=== PATIENT | female | born 1980 | race African-American/Black ===

== ENCOUNTER 2024-01-21 04:14 | Emergency (ER) | payer MEDICAID ==
[~2024-01-21] VITALS: Ht 157.5 cm; Wt 91.0 kg
[2024-01-21] MEDS: IPRATROPIUM BROM 0.5 MG/2.5ML INH SOL NEB ONE (04:41)
[2024-01-21] MEDS: ALBUTEROL SULF 2.5 MG/0.5ML(0.5%) NEB SOLN NEB ONE (04:41)
[2024-01-21] MEDS: DexAMETHasone SOD PHOS 10MG/1ML VIAL INJ IM ONE (05:13)
[2024-01-21 06:30] LABS: Basophils # (auto) 0.1 10 ^3/uL (0-0.2); Basophils % (auto) 0.8 % (0.0-2.0); Eosinophils # (auto) 0.2 10 ^3/uL (0-0.8); Eosinophils % (auto) 1.8 % (0.0-7.0); Hemoglobin 12.3 g/dL (12.2-16.2); Lymphocytes # (auto) 3.1 10 ^3/uL (0.4-5.4); Lymphocytes % (auto) 28.5 % (10.0-50.0); Mean Corpuscular Hemoglobin 27.6 pg (28.0-32.0); Mean Corpuscular Hgb Conc. 32.4 g/dL (32.0-36.0); Monocytes # (auto) 0.7 10 ^3/uL (0-1.3); Neutrophils % (auto) 62.9 % (37.0-80.0); Nucleated Red Blood Cells % 0.1 %; Red Blood Cells 4.47 10^6/uL (4.0-5.20); Red Cell Distribution Width 14.2 % (11.8-14.3); White Blood Cell 11.1 10^3/uL (4.4-10.8)
[2024-01-21 06:31] LABS: Chloride 105 mmol/L (98-107); Potassium 3.6 mmol/L (3.5-5.1); Sodium 140 mmol/L (136-145)
[2024-01-21 06:32] LABS: Anion Gap 6 (5-15); Calcium 9.4 mg/dL (8.5-10.1); Carbon Dioxide 29 mmol/L (20-30)
[2024-01-21 06:37] LABS: BUN/Creatinine Ratio 10.6 (10.0-20.0); Blood Urea Nitrogen 11 mg/dL (9-23); Glucose 102 mg/dL (74-106)
[2024-01-21] MEDS ORDERED: dilTIAZem 25 MG/5 ML VIAL IV ONE (07:30)
[2024-01-21 07:31] VITALS: BP 134/80; RESP 18; O2SAT 98
[2024-01-21 08:00] VITALS: PULSE 92
== END 2024-01-21 08:01 | disposition left against medical advice (07) ==
LOC: ER 04:14
DX: J45.909 Unspecified asthma, uncomplicated (principal); I25.2 Old myocardial infarction; I10 Essential (primary) hypertension; F17.210 Nicotine dependence, cigarettes, uncomplicated; F12.10 Cannabis abuse, uncomplicated; Z86.73 Personal history of transient ischemic attack (TIA), and cerebral infarction without residual deficits; Z90.49 Acquired absence of other specified parts of digestive tract
CPT/HCPCS: 36415; 71045; 80048; 83880; 84484; 85025; 93005; 94640; 96372; 99285; J1100; J7644

== ENCOUNTER 2024-01-24 15:00 | Emergency (ER) | payer MEDICAID ==
[~2024-01-24] VITALS: Ht 157.5 cm; Wt 103.9 kg
[2024-01-24 15:26] LABS: Basophils # (auto) 0.1 10 ^3/uL (0-0.2); Basophils % (auto) 0.7 % (0.0-2.0); Eosinophils # (auto) 0.3 10 ^3/uL (0-0.8); Hematocrit 38.5 % (36.0-46.0); Hemoglobin 12.2 g/dL (12.2-16.2); Lymphocytes # (auto) 2.3 10 ^3/uL (0.4-5.4); Lymphocytes % (auto) 16.7 % (10.0-50.0); Mean Corpuscular Hemoglobin 27.2 pg (28.0-32.0); Mean Corpuscular Hgb Conc. 31.8 g/dL (32.0-36.0); Mean Corpuscular Volume 85.5 fL (80.0-100.0); Monocytes # (auto) 0.7 10 ^3/uL (0-1.3); Neutrophils # (auto) 10.5 10 ^3/uL (1.6-8.6); Neutrophils % (auto) 75.6 % (37.0-80.0); Nucleated Red Blood Cells % 0.1 %; Red Cell Distribution Width 14.1 % (11.8-14.3); White Blood Cell 13.8 10^3/uL (4.4-10.8)
[2024-01-24] MEDS: IPRATROPIUM BROM 0.5 MG/2.5ML INH SOL NEB ONE (15:39)
[2024-01-24] MEDS: ALBUTEROL SULF 2.5 MG/0.5ML(0.5%) NEB SOLN NEB ONE (15:39)
[2024-01-24 15:43] LABS: Alanine Aminotransferase 37 U/L (7-40); Albumin 3.9 g/dL (3.2-4.8); Alkaline Phosphatase 100 U/L (46-116); Anion Gap 5 (5-15); Aspartate Aminotransferase 18 U/L (13-40); BUN/Creatinine Ratio 10.9 (10.0-20.0); Blood Urea Nitrogen 7 mg/dL (9-23); Calcium 8.4 mg/dL (8.5-10.1); Carbon Dioxide 26 mmol/L (20-30); Chloride 108 mmol/L (98-107); Glucose 116 mg/dL (74-106); Potassium 3.6 mmol/L (3.5-5.1); Sodium 139 mmol/L (136-145)
[2024-01-24 15:44] LABS: Total Protein 6.4 g/dL (5.7-8.2)
[2024-01-24] MEDS: DexAMETHasone SOD PHOS 10MG/1ML VIAL INJ IM ONE (17:26)
[2024-01-24 18:13] LABS: COVID19 ANTIGEN SOFIA FIA NEGATIVE (NEGATIVE)
[2024-01-24] MEDS ORDERED: ALBU108A5 IN (18:55)
[2024-01-24] MEDS ORDERED: LORA10CA PO (18:55)
[2024-01-24] MEDS ORDERED: AZIT500T66 PO (18:55)
[2024-01-24] MEDS ORDERED: BENZ100C97 PO (18:55)
[2024-01-24] MEDS: LORATADINE 10 MG TAB PO ONE (20:46)
[2024-01-24] MEDS: AZITHROMYCIN 250 MG TAB PO ONE (20:46)
[2024-01-24 20:47] VITALS: BP 170/92; PULSE 94; RESP 20; TEMP 98.3; O2SAT 98
== END 2024-01-24 20:53 | disposition home or self-care (01) ==
LOC: ER 15:02
DX: J40 Bronchitis, not specified as acute or chronic (principal); R07.89 Other chest pain; F17.210 Nicotine dependence, cigarettes, uncomplicated; F12.10 Cannabis abuse, uncomplicated; Z90.49 Acquired absence of other specified parts of digestive tract; Z86.73 Personal history of transient ischemic attack (TIA), and cerebral infarction without residual deficits; Z20.822 Contact with and (suspected) exposure to COVID-19
CPT/HCPCS: 36415; 71045; 80053; 83880; 84484; 85025; 85379; 87426; 93005; 94640; 96372; 99285; J1100; J7644

== ENCOUNTER 2024-01-29 17:49 | Emergency (ER) | payer MEDICAID ==
[~2024-01-29] VITALS: Ht 165.1 cm; Wt 109.9 kg
[~2024-01-29 17:49] MED LIST: ALBU108A5 IN; AZIT500T66 PO; BENZ100C97 PO; LORA10CA PO
[2024-01-29 17:55] VITALS: BP 122/88; PULSE 76; RESP 20; O2SAT 98
[2024-01-29] MEDS ORDERED: SODIUM CHLORIDE 0.9% 1,000 ML IV ONE (18:30)
== END 2024-01-29 19:09 | disposition left against medical advice (07) ==
LOC: EDBD 17:49 → ER 17:49
DX: R41.82 Altered mental status, unspecified (principal); I25.2 Old myocardial infarction; F17.210 Nicotine dependence, cigarettes, uncomplicated; F12.10 Cannabis abuse, uncomplicated; Z86.73 Personal history of transient ischemic attack (TIA), and cerebral infarction without residual deficits; Z90.49 Acquired absence of other specified parts of digestive tract

== ENCOUNTER 2024-03-23 11:21 | Inpatient (IN) | payer MEDICAID ==
[~2024-03-23] VITALS: Ht 157.5 cm; Wt 115.8 kg
[2024-03-23 13:57] LABS: Chloride 105 mmol/L (98-107); Potassium 3.4 mmol/L (3.5-5.1); Sodium 137 mmol/L (136-145)
[2024-03-23 13:58] LABS: Anion Gap 6 (5-15); Basophils # (auto) 0.1 10 ^3/uL (0-0.2); Basophils % (auto) 1.1 % (0.0-2.0); Calcium 9.3 mg/dL (8.7-10.4); Carbon Dioxide 26 mmol/L (20-30); Eosinophils # (auto) 0.2 10 ^3/uL (0-0.8); Eosinophils % (auto) 1.4 % (0.0-7.0); Hematocrit 40.2 % (36.0-46.0); Lymphocytes # (auto) 3.4 10 ^3/uL (0.4-5.4); Lymphocytes % (auto) 26.2 % (10.0-50.0); Mean Corpuscular Hemoglobin 27.2 pg (28.0-32.0); Mean Corpuscular Hgb Conc. 32.2 g/dL (32.0-36.0); Mean Corpuscular Volume 84.5 fL (80.0-100.0); Monocytes # (auto) 0.8 10 ^3/uL (0-1.3); Monocytes % (auto) 5.8 % (0.0-12.0); Neutrophils # (auto) 8.5 10 ^3/uL (1.6-8.6); Neutrophils % (auto) 65.5 % (37.0-80.0); Nucleated Red Blood Cells % 0.1 %; Red Blood Cells 4.76 10^6/uL (4.0-5.20); Red Cell Distribution Width 15.2 % (11.8-14.3)
[2024-03-23 14:03] LABS: BUN/Creatinine Ratio 10.1 (10.0-20.0); Blood Urea Nitrogen 8 mg/dL (9-23); Glucose 85 mg/dL (74-106)
[2024-03-23] MEDS ORDERED: ACETAMINOPHEN 325 MG TAB PO PRN (15:15)
[2024-03-23] MEDS: KETOROLAC TROMETH 30 MG/ML 1ML VIAL IV ONE (15:15)
[2024-03-23 15:21] VITALS: PULSE 85; RESP 16; O2SAT 95
[2024-03-23] MEDS: HYDROmorphone HCL 2 MG/ML VL/or syr IV PRN (16:02)
[2024-03-23] MEDS: ONDANSETRON HCL 4 MG/2 ML VIAL IV PRN (16:02)
[2024-03-23 17:12] VITALS: BP_SYST 125; BP_SYST 145; BP_DIAS 80; BP_DIAS 98; PULSE 69; PULSE 80; RESP 16; RESP 18; TEMP 96.7; TEMP 98.2; O2SAT 95; O2SAT 96
[2024-03-23 19:55] VITALS: PULSE 72; RESP 19; O2SAT 98
[2024-03-23 21:00] VITALS: BP 157/89; PULSE 72; RESP 19; TEMP 97.7; O2SAT 98
[2024-03-23] MEDS: SODIUM CHLOR 0.9% PF (SALINE LOCK) 10ML VIAL/SYR IV SCH (21:40)
[2024-03-24] VITALS (7 sets, daily range): BP systolic 137–157; BP diastolic 53–97; PULSE 60–102; RESP 16–20; TEMP 97.6–98.2; O2SAT 94–99
[2024-03-24] MEDS: CYCLOBENZAPRINE HCL 10 MG TAB PO PRN (00:17)
[2024-03-24] MEDS: ENOXAPARIN SOD 40 MG/0.4 ML SYRINGE SC SCH (09:24)
[2024-03-24] MEDS ORDERED: HYDROcodone-ACET 5/325MG TAB PO PRN (11:30)
[2024-03-24] MEDS: predniSONE 20 MG TAB PO ONE (12:38)
[2024-03-24] MEDS: HYDROcodone-ACET 5/325MG TAB PO PRN (12:40)
[2024-03-25 01:00] VITALS: BP 119/75; PULSE 62; RESP 16; TEMP 98; O2SAT 95
[2024-03-25 04:55] VITALS: BP 142/77; PULSE 71; RESP 20; TEMP 98; O2SAT 97
[2024-03-25 08:00] VITALS: PULSE 69; RESP 19; O2SAT 99
[2024-03-25 09:00] VITALS: BP 121/73; PULSE 68; RESP 17; TEMP 98.2; O2SAT 99
[2024-03-25] MEDS ORDERED: PRED20TA2 PO (09:19)
[2024-03-25] MEDS ORDERED: HYDR2TAB58 PO (09:19)
[2024-03-25] MEDS ORDERED: AUG875T PO (09:19)
[2024-03-25] MEDS ORDERED: PSEU120T2 PO (09:19)
[2024-03-25 10:22] VITALS: BP 121/73; PULSE 62; RESP 17; TEMP 98.2; O2SAT 99
[2024-03-25] MEDS: AMOXICILLIN/CLAVUL 875 MG TAB PO SCH (10:25)
[2024-03-25] MEDS: predniSONE 20 MG TAB PO SCH (10:26)
[2024-03-25 12:55] VITALS: BP 140/81; PULSE 61; RESP 16; TEMP 98.1; O2SAT 98
== END 2024-03-25 15:00 | disposition home or self-care (01) | DRG 113 ==
LOC: ER 11:21 → OVERFLOW 15:13 → WEST WING 17:14
PROVIDERS: ADMIT Internal Medicine; ATTEND Family Medicine
DX: J01.00 Acute maxillary sinusitis, unspecified (principal); I43 Cardiomyopathy in diseases classified elsewhere; I11.9 Hypertensive heart disease without heart failure; M26.621 Arthralgia of right temporomandibular joint; J01.20 Acute ethmoidal sinusitis, unspecified; F17.210 Nicotine dependence, cigarettes, uncomplicated; J32.1 Chronic frontal sinusitis; I25.2 Old myocardial infarction; Z86.73 Personal history of transient ischemic attack (TIA), and cerebral infarction without residual deficits; Z90.49 Acquired absence of other specified parts of digestive tract; Z98.891 History of uterine scar from previous surgery; Z79.899 Other long term (current) drug therapy
CPT/HCPCS: 36415; 70486; 70551; 80048; 85025; 93306; 99291; G0378; J1885; J2405

== ENCOUNTER 2024-06-29 02:06 | Inpatient (IN) | payer MEDICAID ==
[~2024-06-29] VITALS: Ht 157.5 cm; Wt 111.1 kg
[~2024-06-29 02:06] MED LIST changes: +AUG875T PO; +HYDR2TAB58 PO; +PRED20TA2 PO; +PSEU120T2 PO
[2024-06-29 02:41] LABS: Basophils # (auto) 0.1 10 ^3/uL (0-0.2); Basophils % (auto) 0.8 % (0.0-2.0); Eosinophils # (auto) 0.4 10 ^3/uL (0-0.8); Hemoglobin 11.4 g/dL (12.2-16.2); Lymphocytes # (auto) 2.3 10 ^3/uL (0.4-5.4); Neutrophils # (auto) 5.7 10 ^3/uL (1.6-8.6); White Blood Cell 9.3 10^3/uL (4.4-10.8)
[2024-06-29 02:43] LABS: Hematocrit 35.7 % (36.0-46.0); Lymphocytes % (auto) 24.7 % (10.0-50.0); Mean Corpuscular Hemoglobin 26.5 pg (28.0-32.0); Mean Corpuscular Hgb Conc. 31.9 g/dL (32.0-36.0); Mean Corpuscular Volume 83.3 fL (80.0-100.0); Monocytes # (auto) 0.8 10 ^3/uL (0-1.3); Monocytes % (auto) 8.9 % (0.0-12.0); Neutrophils % (auto) 61.6 % (37.0-80.0); Platelet Count (auto) 328 10^3/uL (140-450); Red Blood Cells 4.29 10^6/uL (4.0-5.20); Red Cell Distribution Width 15.7 % (11.8-14.3)
[2024-06-29 02:53] LABS: Chloride 107 mmol/L (98-107); Sodium 138 mmol/L (136-145)
[2024-06-29 02:54] LABS: Anion Gap 3 (5-15); Carbon Dioxide 28 mmol/L (20-31)
[2024-06-29 02:55] LABS: Calcium 8.6 mg/dL (8.7-10.4)
[2024-06-29 02:59] LABS: BUN/Creatinine Ratio 7.1 (10.0-20.0); Blood Urea Nitrogen 6 mg/dL (9-23); Glucose 107 mg/dL (74-106)
--- NOTE | 2024-06-29 03:01 | ED.PDOC ---
History of Present Illness HPI Comments 44 y/o F, with a Hx of acute sinusitis, HTN, MS, obesity, TIA, and tobacco and marijuana use, presents with c/o left-sided facial pain for 2 days. Patient reports unprovoked onset of progressively worsening aching pain that extends from the top-left side of her head to her left jaw for the past couple of days. Patient also c/o right-foot swelling and "burning" pain, today, that has been ongoing for unknown period of time. Patient comments on no recent stress, injuries, sick contact, travel, or substance use/exposure. Additionally, patient denies any further relevant or pertinent past medical, surgical, or family Hx, with exception of recent [facility] hospital admittance from 03/23/24 to 03/25/24 to r/o right-TMJ disorder when she was seen for right-sided facial pain then. Per previous [facility] medical record for aforementioned admittance, patient was diagnosed with severe sinusitis of all the sinuses on the right-side of her head, including right-frontal sinusitis, right-maxillary sinus, and right-ethmoid sinus, and was discharged on Augmentin, Prednisone, Dilaudid, and Sudafed, with instructions follow up with the ENT for further workup and treatment. Patient denies having any vision or speech changes, dizziness, shortness of breath, congestion, fever, chills, or other associated symptoms or modifiers at this time. Chief Complaint: Face pain Time Seen by MD: 02:25 Primary Care Provider: Adelia Ramirez Reviewed Notes: Nurses Notes, Medications, Allergies Allergies: Coded Allergies: NO KNOWN ALLERGIES (Unverified , 01/21/24) Home Meds Active Scripts Hydromorphone Hcl (Dilaudid) 2 Mg Tab, 1 TAB PO QID PRN, #30 TAB Prov:NERY DURAN MD 03/25/24 Pseudoephedrine (Sudafed 12 Hour) 120 Mg Tab, 1 TAB PO BID, #14 TAB Prov:NERY DURAN MD 03/25/24 Prednisone (Prednisone) 20 Mg Tab, 20 MG PO DAILY, #10 MG Prov:NERY DURAN MD 03/25/24 Amoxicillin & Pot Clavulanate (AUGMENTIN TABLET) 875 Mg Tb, 875 MG PO BID, #28 TAB Prov:NERY DURAN MD 03/25/24 Albuterol Sulfate (Albuterol Sulfate Hfa) 108 Mcg/Act Aer, 108 MCG IN Q4HP PRN, #1 AER Prov:JOLANTA KEYS [facility] 01/24/24 Benzonatate (Benzonatate) 100 Mg Cap, 1 CAP PO TID, #20 CAP Prov:LUDMILAJOLANTA LINARES [facility] 01/24/24 Loratadine (Claritin) 10 Mg Cap, 10 MG PO DAILY for 10 Days, #10 CAP Prov:JOLANTA KEYS [facility] 01/24/24 Azithromycin (Azithromycin) 500 Mg Tab, 1 TAB PO DAILY for 4 Days, #4 TAB Prov:LUDMILAJOLANTA LINARES [facility] 01/24/24 Information Source: Patient Mode of Arrival: Ambulatory Severity: Moderate Timing: Days Duration: Since onset Prehospital treatment: None Past Medical History PAST MEDICAL HISTORY: HTN, MS, TIA Past Medical History (Other): acute sinusitis (right maxillary right frontal and right ethmoid sinuses treated with prednisone and Ha[place] and Augmentin), obesity Surgical History: Cholecystectomy, 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 History: Denies all 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 Hx Family History Family History: Unknown Social History Smoker: Cigarettes Alcohol: Denies ETOH Use Drugs: Marijuana Lives In: Home Constitutional: denies: chills, diaphoresis, fatigue, fever, malaise, sweats, weakness, others EENTM: reports: others (left-sided facial pain); denies: blurred vision, double vision, ear bleeding, ear discharge, ear drainage, ear pain, ear ringing, eye pain, eye redness, hearing loss, mouth pain, mouth swelling, nasal discharge, nose bleeding, nose congestion, nose pain, photophobia, tearing, throat pain, throat swelling, voice changes Respiratory: denies: cough, hemoptysis, orthopnea, SOB at rest, shortness of breath, SOB with excertion, stridor, wheezing, others Cardiovascular: denies: chest pain, dizzy spells, diaphoresis, Dyspnea on exertion, edema, irregular heart beat, left arm pain, lightheadedness, palpitations, PND, syncope, others Gastrointestinal: denies: abdomen distended, abdominal pain, blood streaked bowels, constipated, diarrhea, dysphagia, difficulty swallowing, hematemesis, melena, nausea, poor appetite, poor fluid intake, rectal bleeding, rectal pain, vomiting, others Genitourinary: denies: abnormal vagina bleeding, burning, dyspareunia, dysuria, flank pain, frequency, hematuria, incontinence, pain, , vagina discharge, urgency, others Neurological: denies: dizziness, fainting, headache, left sided numbness, left sided weakness, numbness, paresthesia, pre-existing deficit, right sided numbness, right sided weakness, seizure, speech problems, tingling, tremors, weakness, others Musculoskeletal: reports: others (right foot swelling and pain); denies: back pain, gout, joint pain, joint swelling, muscle pain, muscle stiffness, neck pain Integumetry: denies: bruises, change in color, change in hair/nails, dryness, laceration, lesions, lumps, rash, wounds, others Allergic/Immunocompromised: denies: Difficulty Healing, Frequent Infections, Hives, Itching, others Hematologic/Lymphatic: denies: anemia, blood clots, easy bleeding, easy bruising, swollen glands, others Endocrine: denies: excessive hunger, excessive sweating, excessive thirst, excessive urination, flushing, intolerance to cold, intolerance to heat, unexplained weight gain, unexplained weight loss, others Psychiatric: denies: anxiety, bipolar disorder, depression, hopeless, panic disorder, schizophrenia, sleepless, suicidal, others All Other Systems: Reviewed and Negative Physical Exam General Appearance: Obese, Other (acute distress) HEENT: Normal ENT Inspection, Pharynx Normal, TMs Normal, Other (tenderness to left jaw cheek) Neck: Full Range of Motion, Non-Tender, Normal, Normal Inspection Respiratory: Chest Non-Tender, Lungs Clear, No Accessory Muscle Use, No Respiratory Distress, Normal Breath Sounds Cardiovascular: No Edema, No JVD, No Murmur, No Gallop, Normal Peripheral Pulses, Regular Rate/Rhythm Breast Exam: Deferred Gastrointestinal: No Organomegaly, Non Tender, No Pulsatile Mass, Normal Bowel Sounds, Soft Genitalia: Deferred Pelvic: Deferred Rectal: Deferred Extremities: No calf tenderness, Normal capillary refill, Normal inspection, Normal range of motion, Non-tender, No pedal edema Musculoskeletal : Apperance: Normal Neurologic: Alert, probate paralegal II-XII nml as Tested, No Motor Deficits, Normal Affect, Normal Mood, No Sensory Deficits Cerebellar Function: Normal Reflexes: Normal Skin: Dry, Normal Color, Warm Lymphatic: No Adenopathy Was a procedure done? Was a procedure done?: No Differential Dx Considerations may include: dental cavities, substance use, anxiety, musculoskeletal pain, T[place] X-Ray, Labs, Meds, VS Vital Signs Date Time Temp Pulse Resp B/P (MAP) Pulse Ox O2 Delivery O2 Flow Rate FiO2 06/29/24 03:33 92 22 151/111 06/29/24 03:03 92 22 98 Room Air* 0 21 06/29/24 02:20 98.6 92 22 151/111 (124) 98 Lab Test 06/29/24 02:34 Range/Units White Blood Count 9.3 4.4-10.8 10^3/uL Red Blood Count 4.29 4.0-5.20 10^6/uL Hemoglobin 11.4 L 12.2-16.2 g/dL Hematocrit 35.7 L 36.0-46.0 % Mean Corpuscular Volume 83.3 80.0-100.0 fL Mean Corpuscular Hemoglobin 26.5 L 28.0-32.0 pg Mean Corpuscular Hemoglobin Concent 31.9 L 32.0-36.0 g/dL Red Cell Distribution Width 15.7 H 11.8-14.3 % Platelet Count 328 140-450 10^3/uL Mean Platelet Volume 7.1 6.9-10.8 fL Neutrophils (%) (Auto) 61.6 37.0-80.0 % Lymphocytes (%) (Auto) 24.7 10.0-50.0 % Monocytes (%) (Auto) 8.9 0.0-12.0 % Eosinophils (%) (Auto) 4.0 0.0-7.0 % Basophils (%) (Auto) 0.8 0.0-2.0 % Neutrophils # (Auto) 5.7 1.6-8.6 10 ^3/uL Lymphocytes # (Auto) 2.3 0.4-5.4 10 ^3/uL Monocytes # (Auto) 0.8 0-1.3 10 ^3/uL Eosinophils # (Auto) 0.4 0-0.8 10 ^3/uL Basophils # (Auto) 0.1 0-0.2 10 ^3/uL Nucleated Red Blood Cells 0.0 % Sodium Level 138 136-145 mmol/L Potassium Level 4.0 3.5-5.1 mmol/L Chloride Level 107 98-107 mmol/L Carbon Dioxide Level 28 20-31 mmol/L Anion Gap 3 L 5-15 Blood Urea Nitrogen 6 L 9-23 mg/dL Creatinine 0.84 0.550-1.02 mg/dL Glomerular Filtration Rate Calc 89 >90 mL/min BUN/Creatinine Ratio 7.1 L 10.0-20.0 Serum Glucose 107 H 74-106 mg/dL Calcium Level 8.6 L 8.7-10.4 mg/dL B-Type Natriuretic Peptide 18.77 0-100 pg/mL Current Medications Medications (Trade) Dose Ordered Sig/Jorge Route Start Time Stop Time Status Last Admin Sodium Chloride 1,000 ml @ 1,000 mls/hr Q1H ONCE IV 06/29/24 02:30 06/29/24 03:29 DC 06/29/24 03:33 Ondansetron HCl (Zofran) 4 mg ONCE ONCE IV 06/29/24 02:30 06/29/24 02:31 DC 06/29/24 03:32 Morphine Sulfate 4 mg ONCE ONCE IV 06/29/24 02:30 06/29/24 02:31 DC 06/29/24 03:33 Acetaminophen (Tylenol Tablet) 650 mg ONCE ONCE PO 06/29/24 02:30 06/29/24 02:31 DC 06/29/24 03:32 Time of 1ST Reevaluation: 02:55 Reevaluation 1ST: Unchanged Patient Education/Counseling: Diagnosis, Treatment Family Education/Counseling: No Family Present Departure 1 Departure Time of Disposition: 03:43 (Patient with intractable facial pain as well as concern for CHF. We will admit patient for further workup) Impression: Primary Impression: Facial pain Additional Impression: Swelling of lower extremity Disposition: ADMITTED INPATIENT Admit to: Med Surg Condition: Serious Critical Care Note Critical Care Time?: No Stability Stability form required: No Heart Score Heart Score: Heart Score Response (Comments) Value History N/A 0 EKG N/A 0 Age N/A 0 Risk Factors N/A 0 Troponin N/A 0 Total 0 I personally scribed for ELKE GRACIA MD ([email or web address]) on 06/29/24 at 03:00. Electronically submitted by Clyde Leon ([email or web address]). I personally scribed for ELKE GRACIA MD ([email or web address]) on 06/29/24 at 03:05. Electronically submitted by Clyde Leon [email or web address]). ELKE GRACIA MD Jun 29, 2024 03:00
[2024-06-29 03:03] VITALS: PULSE 92; RESP 22; O2SAT 98
[2024-06-29] MEDS: ONDANSETRON HCL 4 MG/2 ML VIAL IV ONE (03:32)
[2024-06-29] MEDS: ACETAMINOPHEN 325 MG TAB PO ONE (03:32)
[2024-06-29] MEDS: MORPHINE SULFATE 4 MG/ML SYR/VIAL IV ONE (03:33)
[2024-06-29] MEDS: SODIUM CHLORIDE 0.9% 1,000 ML IV ONE (03:33)
[2024-06-29] MEDS: KETOROLAC TROMETH 30 MG/ML 1ML VIAL IV ONE ×2 (04:53→12:45)
[2024-06-29] MEDS: ENOXAPARIN SOD 40 MG/0.4 ML SYRINGE SC SCH (05:15)
[2024-06-29] MEDS ORDERED: ONDANSETRON HCL 4 MG/2 ML VIAL IV PRN (05:15)
[2024-06-29] MEDS ORDERED: NITROGLYCERIN 0.4 MG SL TAB SL PRN (05:15)
[2024-06-29] MEDS ORDERED: ACETAMINOPHEN 325 MG TAB PO PRN (05:15)
--- NOTE | 2024-06-29 05:44 | DVHHPRES ---
History of Present Illness Resident Creating Document: JAYLENE GILLESPIE RESIDENT History of Present Illness RITA COX a 44 years old female with the PMH of HTN, CAD, obesity, TIA, and prediabetes presented to the ED with a chief complaints of left jaw pain in the front of the left ear since 2 days. Patient reported initially she has muscle spasms in the left side of face like locked jaw, and then started having severe pain at temporomandibular joint shooting pain to the head and across the jawline, constant, 9/10 in nature, nothing makes it better but aggrevated by speaking, drinking, eating. Patient does report similar episodes in past but in a right-sided of jaw but now it started left side. On my assessment patient denies recent trauma, headache, nausea, vomiting, fever, chest pain, palpitations and other acute symptoms Past Medical History HTN, CAD, obesity, TIA, and prediabetes Past Surgical History Cholecystectomy, Family History: None Past Social History Lives at home. Smokes less than pack per day, marijuana abuse and occasional alcohol abuse Review of Systems Constitutional: No: Fever, Chills, Sweats, Weakness, Malaise, Other Eyes: No: Pain, Vision change, Conjunctivae inflammation, Eyelid inflammation, Other, Redness ENT: Other (Left Temporomandibular joint pain, jawline pain) Respiratory: No: Cough, Dry, Shortness of breath, SOB with excertion, Wheezing, Hemoptysis, Pleuritic Pain, Sputum, Wheezing, Other Cardiovascular: No: Chest Pain, Palpitations, Orthopnea, Paroxysmal Noc. Dyspnea, Edema, Lt Headedness, Other Gastrointestinal: No: Nausea, Vomiting, Abdominal Pain, Diarrhea, Constipation, Melena, Hematochezia, Other Genitourinary: No Dysuria, No Frequency, No Incontinence, No Hematuria, No Retention, No Other Musculoskeletal: No: other, neck pain, shoulder pain, arm pain, back pain, hand pain, leg pain, foot pain Skin: No: Rash, Lesions, Jaundice, Bruising, Other Neurological: No: Weakness, Numbness, Incoordination, Change in speech, Confusion, Seizures, Other Allergies: Coded Allergies: NO KNOWN ALLERGIES (Unverified , 01/21/24) Medications Current Medications Medications Dose Ordered Sig/Jorge Route Start Time Stop Time Status Last Admin Dose Admin Sodium Chloride 10 ml Q8HR IV 06/29/24 06:00 Acetaminophen 325 mg Q4HP PRN PO 06/29/24 05:15 Acetaminophen/ Hydrocodone Bitart 1 tab Q4HP PRN PO 06/29/24 05:15 Ondansetron HCl 4 mg Q4HP PRN IV 06/29/24 05:15 Enoxaparin Sodium 40 mg DAILY SC 06/29/24 05:15 Nitroglycerin 0.4 mg Q5MINP PRN SL 06/29/24 05:15 Morphine Sulfate 2 mg Q30M PRN IV 06/29/24 05:15 Exam Vital Signs Vital Signs Date Time Temp Pulse Resp B/P (MAP) Pulse Ox O2 Delivery O2 Flow Rate FiO2 06/29/24 04:29 98.7 06/29/24 04:15 67 11 158/93 (114) 98 06/29/24 03:03 Room Air* 0 21 General Appearance: Alert, Oriented X3, Cooperative, mild distress HEENT: Atraumatic, PERRLA, Other (Left temporomandibular joint tenderness) Respiratory: Clear to auscultation, Normal air movement Cardiovascular: Regular rate, Normal S1, Normal S2, No murmurs Abdominal: Normal bowel sounds, Soft, No tenderness, No hepatospenomegaly Extremities: No clubbing, No cyanosis, No edema, Normal pulses, No tenderness/swelling Skin: No rashes, No breakdown, No significant lesion Neuro: Normal gait, Normal speech, Normal tone, Sensation intact Psych/Mental Status: Mental status NL, Mood NL Labs/Xrays Labs Test 06/29/24 02:34 Range/Units White Blood Count 9.3 4.4-10.8 10^3/uL Red Blood Count 4.29 4.0-5.20 10^6/uL Hemoglobin 11.4 L 12.2-16.2 g/dL Hematocrit 35.7 L 36.0-46.0 % Mean Corpuscular Volume 83.3 80.0-100.0 fL Mean Corpuscular Hemoglobin 26.5 L 28.0-32.0 pg Mean Corpuscular Hemoglobin Concent 31.9 L 32.0-36.0 g/dL Red Cell Distribution Width 15.7 H 11.8-14.3 % Platelet Count 328 140-450 10^3/uL Mean Platelet Volume 7.1 6.9-10.8 fL Neutrophils (%) (Auto) 61.6 37.0-80.0 % Lymphocytes (%) (Auto) 24.7 10.0-50.0 % Monocytes (%) (Auto) 8.9 0.0-12.0 % Eosinophils (%) (Auto) 4.0 0.0-7.0 % Basophils (%) (Auto) 0.8 0.0-2.0 % Neutrophils # (Auto) 5.7 1.6-8.6 10 ^3/uL Lymphocytes # (Auto) 2.3 0.4-5.4 10 ^3/uL Monocytes # (Auto) 0.8 0-1.3 10 ^3/uL Eosinophils # (Auto) 0.4 0-0.8 10 ^3/uL Basophils # (Auto) 0.1 0-0.2 10 ^3/uL Nucleated Red Blood Cells 0.0 % Sodium Level 138 136-145 mmol/L Potassium Level 4.0 3.5-5.1 mmol/L Chloride Level 107 98-107 mmol/L Carbon Dioxide Level 28 20-31 mmol/L Anion Gap 3 L 5-15 Blood Urea Nitrogen 6 L 9-23 mg/dL Creatinine 0.84 0.550-1.02 mg/dL Glomerular Filtration Rate Calc 89 >90 mL/min BUN/Creatinine Ratio 7.1 L 10.0-20.0 Serum Glucose 107 H 74-106 mg/dL Calcium Level 8.6 L 8.7-10.4 mg/dL B-Type Natriuretic Peptide 18.77 0-100 pg/mL Assessment/Plan Assessment/Plan # ? TMJ disorder # ruled out TMJ infection -given morphine and Toradol -order maxillofacial CT -warm compress # uncontrolled hypertension -continuously monitored -resume home meds # mild normocytic, hypochromic anemia -monitor lab # obesity with BMI 36.7 -counseled regarding lifestyle modifications # tobacco dependence # tobacco abuse disorder # marijuana abuse disorder -counseled regarding cessation for more than 17 minutes -consider nicotine patch if needed No DVT PPX since patient is ambulating No GI PPX Regular diet Reconciled home meds Goals of care discussed with the patient for more than 27 minutes: Full code status Case management discussed with Dr. Hensley, patient and nurse Plan discussed with: Patient My Orders Orders - JAYLENE GILLESPIE RESIDENT Procedure Category Date Status Time Admit ADMIT 06/29/24 Transmitted 05:06 Allergies ENRIQUETA 06/29/24 In Process 05:06 Code Status CODE 06/29/24 Transmitted 05:06 2 Gm Sodium Diet DIET 06/29/24 Transmitted Breakfast Sodium Chloride Lock PHA 06/29/24 In Process (Saline Lock Ns) 06:00 Acetaminophen Tablet PHA 06/29/24 In Process (Tylenol Tablet) 05:15 Hydrocodone-Acet PHA 06/29/24 In Process 5/325mg Tab (Isleta 05:15 Ondansetron Hcl PHA 06/29/24 In Process (Zofran) 05:15 Complete Blood Count LAB 06/29/24 Logged 05:06 Comprehensive LAB 06/29/24 Logged Metabolic Panel 05:06 Cardiac DIET 06/29/24 Transmitted Diet-2gna,Lofat,Lochol Breakfast Enoxaparin Sodium PHA 06/29/24 In Process (Lovenox) 05:15 Nitroglycerin PHA 06/29/24 In Process Sublingual (Ntrostat 05:15 Morphine Sulfate PHA 06/29/24 In Process Injection 05:15 Oxygen By Nasal RT 06/29/24 Transmitted Cannula 05:06 Stat Ekg For Chest [facility] 06/29/24 In Process Pain 05:06 Notify Md Of Changes [facility] 06/29/24 In Process From Base 05:06 Duplicator Punch Operator For [facility] 06/29/24 In Process 24 Hours 05:06 Emergency Dysrhythmia [facility] 06/29/24 In Process Protocol 05:06 Rhythm Strips Once [facility] 06/29/24 In Process Every Shift 05:06 Beta Hcg, Quantitative LAB 06/29/24 Logged 05:10 Date of Service: Jun 29, 2024 Billing Provider: HALLIE HENSLEY MD Common Visit Codes: [id number] INP/OBS CARE (HIGH) JAYLENE GILLESPIE RESIDENT Jun 29, 2024 05:44 HALLIE HENSLEY MD Jun 29, 2024 09:36
[2024-06-29] MEDS: SODIUM CHLOR 0.9% PF (SALINE LOCK) 10ML VIAL/SYR IV SCH (06:00)
--- NOTE | 2024-06-29 06:34 | DVH ---
CLINICAL INDICATION: 44 years old, Female; TMJ PAIN. TECHNIQUE: Noncontrast CT of the maxillofacial structures was performed. Sagittal and coronal reforma tted images are provided. COMPARISON: CT MAXILLOFACIAL WITHOUT on DOS: 03/24/24 CT Dose: CTDI volume is 66.97 mGy. Dose-length product is 1413.85 mGy*cm FINDINGS: No fracture or dislocation. The bilateral maxillary sinuses, sphenoid sinuses, frontal sinus are flood nt. Ethmoid air cells are patent. Mastoid air cells are patent. The ostiomeatal units are patent bila terally. Orbits are intact and the intraorbital contents are symmetric. Bilateral temporomandibular joints demonstrate symmetric narrowing compatible with mild degenerative changes. The mandible is intact. Multiple dental caries noted. Soft tissues are unremarkable. IMPRESSION: 1. Bilateral temporomandibular joint space narrowing consistent with mild osteoarthritis. 2. No significant paranasal sinus disease or acute osseous abnormality. All CT scans at this medical facility are performed using dose modulation techniques as appropriate t o a performed exam including the following: Automated exposure control was utilized; adjustment of th e MA and/or KV according to patient size; and use of iterative reconstruction technique.
[2024-06-29 07:30] VITALS: O2SAT 98
[2024-06-29 07:57] LABS: Basophils # (auto) 0.1 10 ^3/uL (0-0.2); Eosinophils # (auto) 0.3 10 ^3/uL (0-0.8); Monocytes # (auto) 0.5 10 ^3/uL (0-1.3); Monocytes % (auto) 6.4 % (0.0-12.0); Neutrophils # (auto) 5.7 10 ^3/uL (1.6-8.6); Nucleated Red Blood Cells % 0.1 %; White Blood Cell 8.5 10^3/uL (4.4-10.8)
[2024-06-29 08:00] LABS: Hematocrit 34.3 % (36.0-46.0); Lymphocytes % (auto) 23.2 % (10.0-50.0); Mean Corpuscular Hemoglobin 26.4 pg (28.0-32.0); Mean Corpuscular Hgb Conc. 32.2 g/dL (32.0-36.0); Neutrophils % (auto) 66.4 % (37.0-80.0); Platelet Count (auto) 288 10^3/uL (140-450); Red Blood Cells 4.19 10^6/uL (4.0-5.20); Red Cell Distribution Width 15.4 % (11.8-14.3)
[2024-06-29 08:17] LABS: Alanine Aminotransferase 22 U/L (7-40); Albumin 3.9 g/dL (3.2-4.8); Alkaline Phosphatase 93 U/L (46-116); Anion Gap 6 (5-15); Aspartate Aminotransferase 15 U/L (13-40); BUN/Creatinine Ratio 10.1 (10.0-20.0); Bilirubin, Total 0.5 mg/dL (0.2-1.0); Blood Urea Nitrogen 7 mg/dL (9-23); Calcium 8.3 mg/dL (8.7-10.4); Carbon Dioxide 25 mmol/L (20-31); Chloride 107 mmol/L (98-107); Glucose 99 mg/dL (74-106); Potassium 4.3 mmol/L (3.5-5.1); Sodium 138 mmol/L (136-145); Total Protein 6.3 g/dL (5.7-8.2)
[2024-06-29] MEDS: MORPHINE SULFATE INJ 2 MG/ml SYRG IV PRN (10:30)
[2024-06-29 13:55] LABS: Urine Bacteria None Seen /hpf (None Seen)
[2024-06-29 14:18] LABS: Urine Blood Negative /uL (Negative); Urine Clarity Clear (Clear); Urine Color Light-Yellow (Yellow); Urine Mucus FEW (None Seen); Urine Protein, UAD Negative (Negative); Urine Specific Gravity 1.018 (1.001-1.035); Urine Urobilinogen Normal (Negative); Urine WBC <1 /hpf (0 - 5); Urine pH 6.5 (5.0-9.0)
[2024-06-29 14:19] LABS: Amphetamine Screen, Urine Pos (NEGATIVE); Benzodiazephine Screen, Urine Neg (NEGATIVE)
[2024-06-29 14:20] LABS: Barbiturate Scree,Urine Neg (NEGATIVE); Cannabinoid Screen, Urine Pos (NEGATIVE); Cocaine Screen, Urine Neg (NEGATIVE); Opiate Scree,Urine Pos (NEGATIVE); Phencyclidine Screen, Urine Neg (NEGATIVE)
[2024-06-29] MEDS ORDERED: IBUPROFEN 600 MG TAB PO PRN (14:45)
[2024-06-29] MEDS: HYDROmorphone HCL 2 MG/ML VL/or syr IV PRN (15:12)
--- NOTE | 2024-06-29 15:22 | DVH ---
MRI FACE WITHOUT CONTRAST Clinical History: TMJ pathology. Technique: Multiplanar, multisequence MRI of the face without intravenous contrast. Comparison: None. Findings: The visualized facial soft tissues appear within normal limits. The parotid glands appear unremarkab le. The visualized paranasal sinuses are clear. The visualized intraorbital and intracranial contents appear unremarkable. The right and left temporomandibular joints appear symmetric with the mandibular condyles appropriate ly positioned within the mandibular fossa is on the closed mouth views. There is appropriate transloc ation of the mandibular condyles below the articular eminences on the open-mouth views. The discs rupal ear to be appropriately positioned between the condyles and articular eminences. Impression: 1. Unremarkable MR appearance of the temporomandibular joints which appear symmetrically positioned in the mandibular fossas on the closed mouth views. There is appropriate translocation of the mandibu lar condyles below the articular eminences on the open-mouth views with the discs interpositioned bet ween the condyles and articular eminences. HS:Y
--- NOTE | 2024-06-29 16:00 | DVHPN2 ---
Subjective 44-year-old female was admitted due to severe pain in her left mandible for about 2 days She said it is shooting pain starts from the mandibular joint and shoots up to her head and causes her a headache. Changes from previous H/P or p: Changes Eyes: No Pain, No Vision change, No Conjunctivae inflammation, No Eyelid inflammation, No Other, No Redness ENT: Other (Left Temporomandibular joint pain, jawline pain) Cardiovascular: No Chest Pain, No Palpitations, No Orthopnea, No Paroxysmal Noc. Dyspnea, No Edema, No Lt Headedness, No Other Respiratory: No Cough, No Dry, No Shortness of breath, No SOB with excertion, No Wheezing, No Hemoptysis, No Pleuritic Pain, No Sputum, No Other Gastrointestinal: No Nausea, No Vomiting, No Abdominal Pain, No Diarrhea, No Constipation, No Melena, No Hematochezia, No Other Genitourinary: No Dysuria, No Frequency, No Incontinence, No Hematuria, No Retention, No Other Musculoskeletal: No other, No neck pain, No shoulder pain, No arm pain, No back pain, No hand pain, No leg pain, No foot pain Skin: No Rash, No Lesions, No Jaundice, No Bruising, No Other Objective Vitals Vital Signs Date Time Temp Pulse Resp B/P (MAP) Pulse Ox O2 Delivery O2 Flow Rate FiO2 06/29/24 15:12 71 16 181/104 06/29/24 12:00 95 06/29/24 11:00 98.7 98.7 06/29/24 07:30 Room Air* 0 21 Intake/Output Intake and Output 06/29/24 07:00 Intake Total 1000 ml Balance 1000 ml Intake IV Total 1000 ml General Appearance: Alert, Oriented X3, Cooperative, No acute distress Lungs: Clear to auscultation, Normal air movement Cardiovascular: Regular rate, Normal S1, Normal S2 Abdomen: Normal bowel sounds, Soft, No tenderness Extremities: No edema Medications Current Medications Medications Dose Ordered Sig/Jorge Route Start Time Stop Time Status Last Admin Dose Admin Sodium Chloride 10 ml Q8HR IV 06/29/24 06:00 06/29/24 13:54 10 ML Acetaminophen/ Hydrocodone Bitart 1 tab Q4HP PRN PO 06/29/24 05:15 Ondansetron HCl 4 mg Q4HP PRN IV 06/29/24 05:15 Enoxaparin Sodium 40 mg DAILY SC 06/29/24 05:15 06/29/24 10:26 40 MG Nitroglycerin 0.4 mg Q5MINP PRN SL 06/29/24 05:15 Morphine Sulfate 2 mg Q30M PRN IV 06/29/24 05:15 06/29/24 10:30 2 MG Hydromorphone HCl 0.5 mg Q4HPRN PRN IV 06/29/24 14:45 06/29/24 15:12 0.5 MG Ketorolac Tromethamine 15 mg Q6HPRN PRN IV 06/29/24 16:00 07/04/24 15:59 Ibuprofen 600 mg Q6HP PRN PO 06/29/24 14:45 Laboratory Results Laboratory Tests 06/29/24 07:23 Chemistry Test 06/29/24 02:34 06/29/24 07:23 Calcium Level 8.6 mg/dL (8.7-10.4) L 8.3 mg/dL (8.7-10.4) L Albumin 3.9 g/dL (3.2-4.8) Total Protein 6.3 g/dL (5.7-8.2) Cardiac Markers Test 06/29/24 02:34 B-Type Natriuretic Peptide 18.77 pg/mL (0-100) LFT Test 06/29/24 07:23 Alanine Aminotransferase (ALT) 22 U/L (7-40) Alkaline Phosphatase 93 U/L (46-116) Aspartate Amino Transferase (AST) 15 U/L (13-40) Total Bilirubin 0.5 mg/dL (0.2-1.0) Urinalysis Test 06/29/24 13:53 Urine Color Light-yellow (Yellow) Urine Clarity Clear (Clear) Urine pH 6.5 (5.0-9.0) Urine Specific [place] 1.018 (1.001-1.035) Urine Protein Negative (Negative) Urine Ketones Negative (Negative) Urine Blood Negative /uL (Negative) Urine Nitrite Negative (Negative) Urine Bilirubin Negative (Negative) Urine Urobilinogen Normal mg/dL (Negative) Urine Leukocyte Esterase Negative /uL (Negative) Urine RBC 1 /hpf (0 - 4) Urine WBC <1 /hpf (0 - 5) Urine Squamous Epithelial Cells Few /hpf (<5) Urine Bacteria None seen /hpf (None Seen) Urine Mucus Few (None Seen) Urine Glucose Normal mg/dL (Normal) Urine Test Negative (Negative) Assessment/Plan Assessment/Plan Possible temporomandibular joint dysfunction Headache rule out giant cell arteritis Uncontrolled hypertension Obesity Tobacco dependence Cannabinoids positive Amphetamine use Plan Workup included a maxillary facial CT scan which was negative and a face MRI which was also normal with unremarkable appearance of the temporomandibular joints We will check the CRP and the ESR If positive then we will start the patient on steroids and ask for a temporal artery biopsy Consult neurology Pain management Plan discussed with: Patient My Orders Orders - JOSE LUIS PAZ MD Procedure Category Date Status Time Hydromorphone PHA 06/29/24 In Process Injection (Dilaudid 14:45 Ketorolac Injection PHA 06/29/24 In Process (Toradol Injection) 16:00 Ibuprofen Tablet PHA 06/29/24 In Process (Motrin Tablet) 14:45 *Cons[address] Dr[address] Garcia CONS 06/29/24 Mert Wolff 14:44 Date of Service: Jun 29, 2024 Billing Provider: JOSE LUIS PAZ MD Common Visit Codes: [id number] INP/OBS CARE(HIGH) Secondary Visit Codes: [id number] CARE PLAN 30 MINUTES JOSE LUIS PAZ MD Jun 29, 2024 16:00
[2024-06-29 17:14] VITALS: BP 149/87; PULSE 73; RESP 18; TEMP 97.6; O2SAT 97
[2024-06-29 18:10] LABS: Erythrocyte Sedimentation Rate 7 mm/hr (0-20)
[2024-06-29 18:31] VITALS: RESP 18; O2SAT 100
[2024-06-29] MEDS ORDERED: LISI10TA34 PO (18:31)
[2024-06-29 20:00] VITALS: PULSE 65; RESP 16; O2SAT 95
[2024-06-29] MEDS: KETOROLAC TROMETH 30 MG/ML 1ML VIAL IV PRN (20:25)
[2024-06-29 21:00] VITALS: BP 127/83; PULSE 64; RESP 16; TEMP 97.7; O2SAT 96
--- NOTE | 2024-06-29 23:29 | DVHINCON2 ---
Date of service: Jun 29, [address] Anderson Reason for Consultation Headache History of Present Illness Ms. Valdivia is a 44 years old right-handed female with a history of hypertension, coronary artery disease, heart attack, TIA, anxiety, obesity, she came to the [facility] on 06/29/2024 with a chief complaint of left facial pain. At this time, she is alert and fully oriented, she provided the following history For 2-3 years, she has intermittent mild pain in the left face and head, but since 06/27/2024, she has intense/unbearable constant sharp pain in the left TMJ area, left face, shooting to the left frontotemporal head region, because of intense pain, sometimes she crawled at home because she could not walk. She denies associated tingling, numbness and weakness. She was reports burden and sharp pain in the feet/saw since 06/26/2024, which happens when she is walking, and disappear when she is bed resting She was hospitalized to the [facility] from 03/23/2024 to 03/25/2024 for similar, but less intense right facial pain She was to stroke in her life, the 1st one was in 02/2022. Secondary after her heart attack, the patient developed right facial pain, right shoulder pain, shortness breath, right arm leg weakness, the patient was in the [facility] and she was said to have stroke, but she does not remember taking aspirin or any blood thinner. She had another stroke in 2022, but she does not remember the symptoms, and was admitted to the [facility], but she does not remember how she was treated She reports a history of anxiety, and she does look anxious UDS, 06/29/2024: Opiates, amphetamine Urinalysis, 06/29/2024: Unremarkable WBC/HB/PLT/MCV, 06/29/2024: 8.5/11/288/82 ESR, 06/29/2024: 7 CMP, 06/29/2024: Unremarkable CRP, 06/29/2024: 0.11 CT maxillofacial, 06/29/2024: 1. Bilateral temporomandibular joint space narrowing consistent with mild osteoarthritis. 2. No significant paranasal sinus disease or acute osseous abnormality. MRI face, 06/29/2024: Unremarkable MR appearance of the temporomandibular joints which appear symmetrically positioned in the mandibular fossas on the closed mouth views. There is appropriate translocation of the mandibular condyles below the articular eminences on the open-mouth views with the discs interpositioned between the condyles and articular eminences. Past Medical History Hypertension, coronary artery disease, heart attack, TIA Past Surgical History , cholecystectomy Family History: FH: lung cancer G8 MOTHER Hypertension G8 FATHER Family History Heart disease, cancer, no anxiety, no depression Social History She smokes, she uses marijuana, but denies a history of drug or alcohol abuse Allergies: Coded Allergies: NO KNOWN ALLERGIES (Unverified , 01/21/24) Home Meds Active Scripts Hydromorphone Hcl (Dilaudid) 2 Mg Tab, 1 TAB PO QID PRN, #30 TAB Prov:NERY DURAN MD 03/25/24 Pseudoephedrine (Sudafed 12 Hour) 120 Mg Tab, 1 TAB PO BID, #14 TAB Prov:NERY DURAN MD 03/25/24 Prednisone (Prednisone) 20 Mg Tab, 20 MG PO DAILY, #10 MG Prov:NERY DURAN MD 03/25/24 Albuterol Sulfate (Albuterol Sulfate Hfa) 108 Mcg/Act Aer, 108 MCG IN Q4HP PRN, #1 AER Prov:JOLANTA KEYS [facility] 01/24/24 Benzonatate (Benzonatate) 100 Mg Cap, 1 CAP PO TID, #20 CAP Prov:JOLANTA KEYS [facility] 01/24/24 Loratadine (Claritin) 10 Mg Cap, 10 MG PO DAILY for 10 Days, #10 CAP Prov:JOLANTA KEYS [facility] 01/24/24 Reported Medications Lisinopril (Lisinopril) 10 Mg Tab, 10 MG PO DAILY for 30 Days, MG 06/29/24 Current Medications Current Medications Medications (Trade) Dose Ordered Sig/Jorge Route PRN Reason Start Time Stop Time Status Last Admin Sodium Chloride (Saline Lock Ns) 10 ml Q8HR IV 06/29/24 06:00 06/29/24 21:59 Acetaminophen (Tylenol Tablet) 325 mg Q4HP PRN PO MILD PAIN (1-3 PAIN SCALE) 06/29/24 05:15 06/29/24 14:44 DC Acetaminophen/ Hydrocodone Bitart ([place] 5/325MG Tab) 1 tab Q4HP PRN PO MODERATE PAIN (4-6 PAIN SCALE) 06/29/24 05:15 Ondansetron HCl (Zofran) 4 mg Q4HP PRN IV NAUSEA / VOMITING 06/29/24 05:15 Enoxaparin Sodium (Lovenox) 40 mg DAILY SC 06/29/24 05:15 06/29/24 10:26 Nitroglycerin (Ntrostat Sublingual) 0.4 mg Q5MINP PRN SL FOR CHEST PAIN 06/29/24 05:15 Morphine Sulfate 2 mg Q30M PRN IV FOR CHEST PAIN 06/29/24 05:15 06/29/24 10:30 Hydromorphone HCl (Dilaudid Injection) 0.5 mg Q4HPRN PRN IV SEVERE PAIN (7-10 PAIN SCALE) 06/29/24 14:45 06/29/24 18:21 Ketorolac Tromethamine (Toradol Injection) 15 mg Q6HPRN PRN IV MODERATE PAIN (4-6 PAIN SCALE) 06/29/24 16:00 07/04/24 15:59 06/29/24 20:25 Ibuprofen (Motrin Tablet) 600 mg Q6HP PRN PO MILD PAIN (1-3 PAIN SCALE) 06/29/24 14:45 Review of Systems As above, the other systems are negative Vital Signs Vital Signs Date Time Temp Pulse Resp B/P (MAP) Pulse Ox O2 Delivery O2 Flow Rate FiO2 06/29/24 21:00 97.7 64 16 127/83 (98) 96 97.7 06/29/24 20:00 Room Air* 0 21 Physical Exam GENERAL EXAM: General: the patient is well developed and nourished. No acute distress. HEENT: Normocephalic, neck is supple, no carotid bruits. No mass. RESPIRATORY: Normal respiratory effort with symmetrical lung expansion. Lungs clear to auscultation. CARDIOVASCULAR: Regular rate and rhythm with no murmurs. S1, S2. ABDOMEN: Soft, nontender, normal bowel sound NEUROLOGICAL: MENTAL STATUS: Awake and alert. Oriented to person, place, time and general circumstances. Able to give personal history. He looks nervous SPEECH, LANGUAGE, HIGHER CORTICAL FUNCTION: no aphasia or dysathria. CRANIAL NERVES: #2: Intact visual hayes to confrontation. The optic discs were sharp. #3,4,6: Pupils are equal, round and reactive. EOMs full and conjugate. No nys tagmus. #5: Mandibular strength spine, severe allodynia in the left face #7: Facial muscles symmetrical and strength intact. #8: Hearing grossly normal to voice. #9,10: Uvula and soft palate rise in the midline. Swallow and voice are normal. #11: Trapezius and sternomastoid strength intact bilaterally. #12: Tongue midline. No fasciculations or atrophy. SENSATION: Sensation to touch and pinprick is normal. MOTOR: Normal tone in the upper and lower extremity. Normal muscle bulk. No fasciculations. No abnormal movements or posturing. Muscle strength of the major groups in the upper extremities is 5/5. Muscle strength of the major groups in the lower extremities is 5/5. REFLEXES: Deep tendon reflexes normal and symmetrical. No pathological reflexe s. CEREBELLAR/COORDINATION: Finger to nose is normal bilaterally. GAIT/STATION: deferred. Labs/Diagnostic Data Labs Test 06/29/24 13:53 06/29/24 07:23 06/29/24 02:34 Range/Units Urine Color Light-yellow Yellow Urine Clarity Clear Clear Urine pH 6.5 5.0-9.0 Urine Specific [place] 1.018 1.001-1.035 Urine Protein Negative Negative Urine Ketones Negative Negative Urine Blood Negative Negative /uL Urine Nitrite Negative Negative Urine Bilirubin Negative Negative Urine Urobilinogen Normal Negative mg/dL Urine Leukocyte Esterase Negative Negative /uL Urine RBC 1 0 - 4 /hpf Urine WBC <1 0 - 5 /hpf Urine Squamous Epithelial Cells Few <5 /hpf Urine Bacteria None seen None Seen /hpf Urine Mucus Few None Seen Urine Glucose Normal Normal mg/dL Urine Test Negative Negative Urine Opiates Screen Pos NEGATIVE Urine Fentanyl Screen Neg NEGATIVE Urine Barbiturates Screen Neg NEGATIVE Urine Phencyclidine Screen Neg NEGATIVE Urine Amphetamines Screen Pos NEGATIVE Urine Benzodiazepines Screen Neg NEGATIVE Urine Cocaine Screen Neg NEGATIVE Urine Cannabinoids Screen Pos NEGATIVE White Blood Count 8.5 4.4-10.8 10^3/uL Red Blood Count 4.19 4.0-5.20 10^6/uL Hemoglobin 11.0 L 12.2-16.2 g/dL Hematocrit 34.3 L 36.0-46.0 % Mean Corpuscular Volume 82.0 80.0-100.0 fL Mean Corpuscular Hemoglobin 26.4 L 28.0-32.0 pg Mean Corpuscular Hemoglobin Concent 32.2 32.0-36.0 g/dL Red Cell Distribution Width 15.4 H 11.8-14.3 % Platelet Count 288 140-450 10^3/uL Mean Platelet Volume 7.9 6.9-10.8 fL Neutrophils (%) (Auto) 66.4 37.0-80.0 % Lymphocytes (%) (Auto) 23.2 10.0-50.0 % Monocytes (%) (Auto) 6.4 0.0-12.0 % Eosinophils (%) (Auto) 3.0 0.0-7.0 % Basophils (%) (Auto) 1.0 0.0-2.0 % Neutrophils # (Auto) 5.7 1.6-8.6 10 ^3/uL Lymphocytes # (Auto) 2.0 0.4-5.4 10 ^3/uL Monocytes # (Auto) 0.5 0-1.3 10 ^3/uL Eosinophils # (Auto) 0.3 0-0.8 10 ^3/uL Basophils # (Auto) 0.1 0-0.2 10 ^3/uL Nucleated Red Blood Cells 0.1 % Erythrocyte Sedimentation Rate 7 0-20 mm/hr Sodium Level 138 136-145 mmol/L Potassium Level 4.3 3.5-5.1 mmol/L Chloride Level 107 98-107 mmol/L Carbon Dioxide Level 25 20-31 mmol/L Anion Gap 6 5-15 Blood Urea Nitrogen 7 L 9-23 mg/dL Creatinine 0.69 0.550-1.02 mg/dL Glomerular Filtration Rate Calc 111 >90 mL/min BUN/Creatinine Ratio 10.1 10.0-20.0 Serum Glucose 99 74-106 mg/dL Calcium Level 8.3 L 8.7-10.4 mg/dL Total Bilirubin 0.5 0.2-1.0 mg/dL Aspartate Amino Transferase (AST) 15 13-40 U/L Alanine Aminotransferase (ALT) 22 7-40 U/L Alkaline Phosphatase 93 46-116 U/L C-Reactive Protein High Sensitivity 0.11 <1.0 mg/dL Total Protein 6.3 5.7-8.2 g/dL Albumin 3.9 3.2-4.8 g/dL Beta HCG, Quantitative 0.3 L 1.5-4.2 mIU/mL B-Type Natriuretic Peptide 18.77 0-100 pg/mL Assessment Severe left facial pain, unremarkable ESR, CRP, TMJ MRI/CT scans, etiology unclear Reported strokes x2, details not clear, there was atypical features in the 1st stroke Anxiety Burning/shooting pain in the feet since 06/26/2024 Plan/Recommendation Monitoring Supportive treatment Telemetry Current pain management More recommendation per clinical course Progress: Poor This medical document was created using an electronic medical record system with [employer] dictation system. Although this document has been carefully reviewed, there may still be some phonetic and typographical errors. These areas are purely typographical due to imperfections of the software programs, and do not reflect any compromise in the patient's medical care. Plan discussed with: Patient, Other MICAH REYES MD Jun 29, 2024 23:29
[2024-06-30 01:00] VITALS: BP 132/90; PULSE 76; RESP 18; TEMP 98.1; O2SAT 98
[2024-06-30 05:00] VITALS: BP 140/84; PULSE 77; RESP 18; TEMP 98.2; O2SAT 97
[2024-06-30] MEDS ORDERED: methylPREDNISolone SOD SUCC 125 MG/2 ML VL ONE (08:09)
[2024-06-30 09:24] VITALS: BP 131/56; PULSE 80; RESP 16; TEMP 98.7; O2SAT 96
--- NOTE | 2024-06-30 10:25 | DVHPN2 ---
Progress Note - Dictate Date Seen: Jun 30, 2024 Medical Necessity Reason Pt with a Central, PICC or Fol: No Subjective Ms. Valdivia is a 44 years old right-handed female with a history of hypertension, coronary artery disease, heart attack, TIA, anxiety, obesity, she came to the [facility] on 06/29/2024 with a chief complaint of left facial pain. I have seen and examined the patient, discussed with her nurse, this no change in her left facial pain, history looks nervous. She reports the pain management is inadequate I have discussing, she agreed to see a tele psychiatrist UDS, 06/29/2024: Opiates, amphetamine Urinalysis, 06/29/2024: Unremarkable WBC/HB/PLT/MCV, 06/29/2024: 8.5//82 ESR, 06/29/2024: 7 CMP, 06/29/2024: Unremarkable CRP, 06/29/2024: 0.11 CT maxillofacial, 06/29/2024: 1. Bilateral temporomandibular joint space narrowing consistent with mild osteoarthritis. 2. No significant paranasal sinus disease or acute osseous abnormality. MRI face, 06/29/2024: Unremarkable MR appearance of the temporomandibular joints which appear symmetrically positioned in the mandibular fossas on the closed mouth views. There is appropriate translocation of the mandibular condyles below the articular eminences on the open-mouth views with the discs interpositioned between the condyles and articular eminences. vital signs Vital Sign Date Time Temp Pulse Resp B/P (MAP) Pulse Ox O2 Delivery O2 Flow Rate FiO2 06/30/24 09:24 98.7 80 16 131/56 (81) 96 98.7 06/29/24 20:00 Room Air* 0 21 Total Intake and Output 06/29/24 06/29/24 06/30/24 15:00 23:00 07:00 Intake Total 350 ml 240 ml Balance 350 ml 240 ml medications Current Medications Medications Dose Ordered Sig/Jorge Route Start Time Stop Time Status Last Admin Dose Admin Sodium Chloride 10 ml Q8HR IV 06/29/24 06:00 06/30/24 05:50 10 ML Acetaminophen/ Hydrocodone Bitart 1 tab Q4HP PRN PO 06/29/24 05:15 Ondansetron HCl 4 mg Q4HP PRN IV 06/29/24 05:15 Enoxaparin Sodium 40 mg DAILY SC 06/29/24 05:15 06/30/24 09:31 40 MG Nitroglycerin 0.4 mg Q5MINP PRN SL 06/29/24 05:15 Morphine Sulfate 2 mg Q30M PRN IV 06/29/24 05:15 06/29/24 10:30 2 MG Hydromorphone HCl 0.5 mg Q4HPRN PRN IV 06/29/24 14:45 06/30/24 06:35 0.5 MG Ketorolac Tromethamine 15 mg Q6HPRN PRN IV 06/29/24 16:00 07/04/24 15:59 06/30/24 09:40 15 MG Ibuprofen 600 mg Q6HP PRN PO 06/29/24 14:45 objective General: the patient is well developed and nourished. No acute distress. MENTAL STATUS: Subjective SPEECH, LANGUAGE, HIGHER CORTICAL FUNCTION: no aphasia or dysathria. CRANIAL NERVES: Pupils are equal, round and reactive. EOMs full and conjugate. No nystagmus. Mandibular strength spine, severe allodynia in the left face Facial muscles symmetrical and strength intact. SENSATION: Sensation to touch and pinprick is normal. MOTOR: Normal tone in the upper and lower extremity. Normal muscle bulk. No fasciculations. No abnormal movements or posturing. Muscle strength of the major groups in the extremities is 5/5. REFLEXES: Deep tendon reflexes normal and symmetrical. No pathological reflexes. CEREBELLAR/COORDINATION: Finger to nose is normal bilaterally. GAIT/STATION: deferred. laboratory and microbiology Laboratory Tests 06/29/24 07:23 Test 06/29/24 07:23 Range/Units Serum Glucose 99 74-106 mg/dL Problem List Severe left facial pain, unremarkable ESR, CRP, TMJ MRI/CT scans, etiology unclear Reported strokes x2, details not clear, there was atypical features in the 1st stroke Anxiety Burning/shooting pain in the feet since 06/26/2024 Assessment/Plan Monitoring Supportive treatment Telemetry Current pain [facility] Tele [facility]ry consultation Re: Anxiety More recommendation per clinical course This medical document was created using an electronic medical record system with [employer] dictation system. Although this document has been carefully reviewed, there may still be some phonetic and typographical errors. These areas are purely typographical due to imperfections of the software programs, and do not reflect any compromise in the patient's medical care. Prognosis poor Plan discussed with: Patient, Other Total Time (mins): 40 MICAH REYES MD Jun 30, 2024 10:25
[2024-06-30 13:13] VITALS: BP 120/67; PULSE 70; RESP 16; TEMP 98.1; O2SAT 99
--- NOTE | 2024-06-30 14:36 | DVHPN2 ---
Subjective She is feeling better The pain is better CRP and ESR were done yesterday were negative MRI of the face was normal Changes from previous H/P or p: Changes Eyes: No Pain, No Vision change, No Conjunctivae inflammation, No Eyelid inflammation, No Other, No Redness ENT: Other (Left Temporomandibular joint pain, jawline pain) Cardiovascular: No Chest Pain, No Palpitations, No Orthopnea, No Paroxysmal Noc. Dyspnea, No Edema, No Lt Headedness, No Other Respiratory: No Cough, No Dry, No Shortness of breath, No SOB with excertion, No Wheezing, No Hemoptysis, No Pleuritic Pain, No Sputum, No Other Gastrointestinal: No Nausea, No Vomiting, No Abdominal Pain, No Diarrhea, No Constipation, No Melena, No Hematochezia, No Other Genitourinary: No Dysuria, No Frequency, No Incontinence, No Hematuria, No Retention, No Other Musculoskeletal: No other, No neck pain, No shoulder pain, No arm pain, No back pain, No hand pain, No leg pain, No foot pain Skin: No Rash, No Lesions, No Jaundice, No Bruising, No Other Objective Vitals Vital Signs Date Time Temp Pulse Resp B/P (MAP) Pulse Ox O2 Delivery O2 Flow Rate FiO2 06/30/24 13:13 98.1 70 16 120/67 (84) 99 98.1 06/30/24 08:05 Room Air* 0 21 Intake/Output Intake and Output 06/30/24 07:00 Intake Total 590 ml Balance 590 ml Intake Oral 590 ml # Voids 2 General Appearance: Alert, Oriented X3, Cooperative, No acute distress Lungs: Clear to auscultation, Normal air movement Cardiovascular: Regular rate, Normal S1, Normal S2 Abdomen: Normal bowel sounds, Soft, No tenderness Extremities: No edema Medications Current Medications Medications Dose Ordered Sig/Jorge Route Start Time Stop Time Status Last Admin Dose Admin Sodium Chloride 10 ml Q8HR IV 06/29/24 06:00 06/30/24 14:00 10 ML Acetaminophen/ Hydrocodone Bitart 1 tab Q4HP PRN PO 06/29/24 05:15 Ondansetron HCl 4 mg Q4HP PRN IV 06/29/24 05:15 Enoxaparin Sodium 40 mg DAILY SC 06/29/24 05:15 06/30/24 09:31 40 MG Nitroglycerin 0.4 mg Q5MINP PRN SL 06/29/24 05:15 Morphine Sulfate 2 mg Q30M PRN IV 06/29/24 05:15 06/29/24 10:30 2 MG Hydromorphone HCl 0.5 mg Q4HPRN PRN IV 06/29/24 14:45 06/30/24 11:35 0.5 MG Ketorolac Tromethamine 15 mg Q6HPRN PRN IV 06/29/24 16:00 07/04/24 15:59 06/30/24 09:40 15 MG Ibuprofen 600 mg Q6HP PRN PO 06/29/24 14:45 Laboratory Results Laboratory Tests 06/29/24 07:23 Urinalysis Test 06/29/24 13:53 Urine Color Light-yellow (Yellow) Urine Clarity Clear (Clear) Urine pH 6.5 (5.0-9.0) Urine Specific [place] 1.018 (1.001-1.035) Urine Protein Negative (Negative) Urine Ketones Negative (Negative) Urine Blood Negative /uL (Negative) Urine Nitrite Negative (Negative) Urine Bilirubin Negative (Negative) Urine Urobilinogen Normal mg/dL (Negative) Urine Leukocyte Esterase Negative /uL (Negative) Urine RBC 1 /hpf (0 - 4) Urine WBC <1 /hpf (0 - 5) Urine Squamous Epithelial Cells Few /hpf (<5) Urine Bacteria None seen /hpf (None Seen) Urine Mucus Few (None Seen) Urine Glucose Normal mg/dL (Normal) Urine Test Negative (Negative) Assessment/Plan Assessment/Plan Possible temporomandibular joint dysfunction Headache rule out giant cell arteritis Uncontrolled hypertension Obesity Tobacco dependence Cannabinoids positive Amphetamine use Plan 06/29/2024: Workup included a maxillary facial CT scan which was negative and a face MRI which was also normal with unremarkable appearance of the temporomandibular joints We will check the CRP and the ESR If positive then we will start the patient on steroids and ask for a temporal artery biopsy Consult neurology Pain management 06/30/2024: Continue the current management and plan for now Pain management as needed Blood pressure is normal now Discharge planning for tomorrow Consulted Psychiatry for the anxiety disorder Plan discussed with: Patient My Orders Orders - JOSE LUIS PAZ MD Procedure Category Date Status Time Hydromorphone PHA 06/29/24 In Process Injection (Dilaudid 14:45 Ketorolac Injection PHA 06/29/24 In Process (Toradol Injection) 16:00 Ibuprofen Tablet PHA 06/29/24 In Process (Motrin Tablet) 14:45 *Cons[address] Dr[address] Garcia CONS 06/29/24 Transmitted Wolff 14:44 Soc Telemed Psych CONS 06/30/24 Transmitted Consult 11:39 Date of Service: Jun 30, 2024 Billing Provider: JOSE LUIS PAZ MD Common Visit Codes: [id number] INP/OBS CARE(HIGH) JOSE LUIS PAZ MD Jun 30, 2024 14:36
[2024-06-30] MEDS: HYDROcodone-ACET 5/325MG TAB PO PRN (15:06)
[2024-06-30 16:50] VITALS: BP 157/79; PULSE 69; RESP 18; TEMP 98.7; O2SAT 98
--- NOTE | 2024-06-30 18:53 | DVHINCON2 ---
Date of Service if different f: Jun 30, 2024 Consultation ([facility]) Consulting Physician: MICAH REYES MD Labs Laboratory Tests Test 06/29/24 02:34 06/29/24 07:23 06/29/24 13:53 B-Type Natriuretic Peptide 18.77 pg/mL (0-100) White Blood Count 8.5 10^3/uL (4.4-10.8) Red Blood Count 4.19 10^6/uL (4.0-5.20) Hemoglobin 11.0 g/dL (12.2-16.2) Hematocrit 34.3 % (36.0-46.0) Mean Corpuscular Volume 82.0 fL (80.0-100.0) Mean Corpuscular Hemoglobin 26.4 pg (28.0-32.0) Mean Corpuscular Hemoglobin Concent 32.2 g/dL (32.0-36.0) Red Cell Distribution Width 15.4 % (11.8-14.3) Platelet Count 288 10^3/uL (140-450) Mean Platelet Volume 7.9 fL (6.9-10.8) Neutrophils (%) (Auto) 66.4 % (37.0-80.0) Lymphocytes (%) (Auto) 23.2 % (10.0-50.0) Monocytes (%) (Auto) 6.4 % (0.0-12.0) Eosinophils (%) (Auto) 3.0 % (0.0-7.0) Basophils (%) (Auto) 1.0 % (0.0-2.0) Neutrophils # (Auto) 5.7 10 ^3/uL (1.6-8.6) Lymphocytes # (Auto) 2.0 10 ^3/uL (0.4-5.4) Monocytes # (Auto) 0.5 10 ^3/uL (0-1.3) Eosinophils # (Auto) 0.3 10 ^3/uL (0-0.8) Basophils # (Auto) 0.1 10 ^3/uL (0-0.2) Nucleated Red Blood Cells 0.1 % Erythrocyte Sedimentation Rate 7 mm/hr (0-20) Sodium Level 138 mmol/L (136-145) Potassium Level 4.3 mmol/L (3.5-5.1) Chloride Level 107 mmol/L (98-107) Carbon Dioxide Level 25 mmol/L (20-31) Anion Gap 6 (5-15) Blood Urea Nitrogen 7 mg/dL (9-23) Creatinine 0.69 mg/dL (0.550-1.02) Glomerular Filtration Rate Calc 111 mL/min (>90) BUN/Creatinine Ratio 10.1 (10.0-20.0) Serum Glucose 99 mg/dL (74-106) Calcium Level 8.3 mg/dL (8.7-10.4) Total Bilirubin 0.5 mg/dL (0.2-1.0) Aspartate Amino Transf (AST/SGOT) 15 U/L (13-40) Alanine Aminotransferase (ALT/SGPT) 22 U/L (7-40) Alkaline Phosphatase 93 U/L (46-116) C-Reactive Protein High Sensitivity 0.11 mg/dL (<1.0) Total Protein 6.3 g/dL (5.7-8.2) Albumin 3.9 g/dL (3.2-4.8) Beta HCG, Quantitative 0.3 mIU/mL (1.5-4.2) Urine Color Light-yellow (Yellow) Urine Clarity Clear (Clear) Urine pH 6.5 (5.0-9.0) Urine Specific [place] 1.018 (1.001-1.035) Urine Protein Negative (Negative) Urine Ketones Negative (Negative) Urine Blood Negative /uL (Negative) Urine Nitrite Negative (Negative) Urine Bilirubin Negative (Negative) Urine Urobilinogen Normal mg/dL (Negative) Urine Leukocyte Esterase Negative /uL (Negative) Urine RBC 1 /hpf (0 - 4) Urine WBC <1 /hpf (0 - 5) Urine Squamous Epithelial Cells Few /hpf (<5) Urine Bacteria None seen /hpf (None Seen) Urine Mucus Few (None Seen) Urine Glucose Normal mg/dL (Normal) Urine Test Negative (Negative) Urine Opiates Screen Pos (NEGATIVE) Urine Fentanyl Screen Neg (NEGATIVE) Urine Barbiturates Screen Neg (NEGATIVE) Urine Phencyclidine Screen Neg (NEGATIVE) Urine Amphetamines Screen Pos (NEGATIVE) Urine Benzodiazepines Screen Neg (NEGATIVE) Urine Cocaine Screen Neg (NEGATIVE) Urine Cannabinoids Screen Pos (NEGATIVE) Appetite: Fair Appearance: Stated age Psychomotor activity: WNL Behavioral: Cooperative Eye contact: Limited Speech: WNL Affect: Mood Congruent Mood: Depressed, Anxious Thought processes: Linear/Goal-directed Thought content: WNL Suicidal ideations: Absent Homicidal ideations: Absent Orientation: Person, Place, Time, Situation Memory intact: Recent Intellect: Average Abstractability: WNL Concentration: Adequate Attention: Adequate Judgement: WNL Insight: Poor Vitals Vital Signs Date Time Temp Pulse Resp B/P (MAP) Pulse Ox O2 Delivery O2 Flow Rate FiO2 06/30/24 16:50 98.7 69 18 157/79 (105) 98 98.7 06/30/24 08:05 Room Air* 0 21 Current medications Current Medications Medications Dose Ordered Sig/Jorge Route Start Time Stop Time Status Last Admin Dose Admin Sodium Chloride 10 ml Q8HR IV 06/29/24 06:00 06/30/24 14:00 10 ML Acetaminophen/ Hydrocodone Bitart 1 tab Q4HP PRN PO 06/29/24 05:15 06/30/24 15:06 1 TAB Ondansetron HCl 4 mg Q4HP PRN IV 06/29/24 05:15 Enoxaparin Sodium 40 mg DAILY SC 06/29/24 05:15 06/30/24 09:31 40 MG Nitroglycerin 0.4 mg Q5MINP PRN SL 06/29/24 05:15 Morphine Sulfate 2 mg Q30M PRN IV 06/29/24 05:15 06/29/24 10:30 2 MG Hydromorphone HCl 0.5 mg Q4HPRN PRN IV 06/29/24 14:45 06/30/24 16:09 0.5 MG Ketorolac Tromethamine 15 mg Q6HPRN PRN IV 06/29/24 16:00 07/04/24 15:59 06/30/24 09:40 15 MG Ibuprofen 600 mg Q6HP PRN PO 06/29/24 14:45 Medication adjusted: Yes Diagnosis: unspecified mood disorder, unspecified anxiety, Cannabis dependence, Methamphetamine abuse, alcohol abuse Plan : Patient denies Si/Hi. She does not meet LPS hold criteria and may be discharged after medical clearance Recommend restart Zoloft 50mg po daily for mood and anxiety symptoms Recommend referrals for outpatient health follow up. Encouraged substance avoidance and substance abuse rehab programs Return to ED if suicidal/homicidal ideation or worsening mood and/or psychotic symptoms. History of Present Illness Reason for Consult : Hx of anxiety disorder HPI : This is a 44-year-old female with hx of anxiety presents for left jaw pain. On evaluation via telepsychiatry, she does report hx of depressed mood and generalized anxiety. She report symptoms worsened with passing of 3 family members including 7-year-old daughter who passed 4 years ago. She reports use of marijuana and methamphetamine abuse around that time as a way to cope with her mood symptoms and grief. She denies feeling hopeless, helpless, or anhedonia. Sh e does become tearful. She expresses wanting to get help with her pain and mood symptoms. She reports she would like treatment for pain as this would help decrease her use of recreational drugs. She reports use of substance as a way to treat her pain. She denies suicidal/homicidal ideation. She denies auditory/visual hallucinations or paranoia. She reports adequate sleep and appetite. Past Psychiatric History : She denies past psych admission or holds. She denies past suicide attempts. She was receiving Zoloft from PCP years ago, she cannot recall if it was helpful. 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 She reports being a mother of 6, 2 children are minors. She reports marijuana and meth use for the last 4 years. She denies daily use, but use of a few times weekly. She uses alcohol, 1-2 shots of tequila every other day. She uses nicotine. She reports Percocet use in the past, but denies current opiate use. She reports brother with hx of schizophrenia and mother has anxiety. She denies access to firearms. NORM LOZA DNP Jun 30, 2024 18:53
[2024-06-30 20:30] VITALS: BP 150/75; PULSE 72; RESP 18; TEMP 98.1; O2SAT 90
[2024-07-01 01:00] VITALS: BP 158/77; PULSE 70; RESP 18; TEMP 97.8; O2SAT 92
[2024-07-01 05:00] VITALS: BP 159/92; PULSE 85; RESP 18; TEMP 97.3; O2SAT 94
[2024-07-01 09:00] VITALS: BP 156/76; PULSE 75; RESP 18; TEMP 98.4; O2SAT 95
[2024-07-01] MEDS ORDERED: LISINOPRIL 20 MG TAB PO SCH (10:00)
[2024-07-01] MEDS ORDERED: SERT50TA PO (10:29)
--- NOTE | 2024-07-01 10:29 | DVHDS2 ---
Discharge Summary Date of Admission Jun 29, 2024 at 05:09 Date of Discharge: Jul 01, 2024 Labs/Diagnostic Data: Laboratory Results Test 06/29/24 13:53 06/29/24 07:23 06/29/24 02:34 Urine Color Light-yellow (Yellow) Urine Clarity Clear (Clear) Urine pH 6.5 (5.0-9.0) Urine Specific [place] 1.018 (1.001-1.035) Urine Protein Negative (Negative) Urine Ketones Negative (Negative) Urine Blood Negative /uL (Negative) Urine Nitrite Negative (Negative) Urine Bilirubin Negative (Negative) Urine Urobilinogen Normal mg/dL (Negative) Urine Leukocyte Esterase Negative /uL (Negative) Urine RBC 1 /hpf (0 - 4) Urine WBC <1 /hpf (0 - 5) Urine Squamous Epithelial Cells Few /hpf (<5) Urine Bacteria None seen /hpf (None Seen) Urine Mucus Few (None Seen) Urine Glucose Normal mg/dL (Normal) Urine Test Negative (Negative) Urine Opiates Screen Pos (NEGATIVE) Urine Fentanyl Screen Neg (NEGATIVE) Urine Barbiturates Screen Neg (NEGATIVE) Urine Phencyclidine Screen Neg (NEGATIVE) Urine Amphetamines Screen Pos (NEGATIVE) Urine Benzodiazepines Screen Neg (NEGATIVE) Urine Cocaine Screen Neg (NEGATIVE) Urine Cannabinoids Screen Pos (NEGATIVE) White Blood Count 8.5 10^3/uL (4.4-10.8) Red Blood Count 4.19 10^6/uL (4.0-5.20) Hemoglobin 11.0 g/dL (12.2-16.2) Hematocrit 34.3 % (36.0-46.0) Mean Corpuscular Volume 82.0 fL (80.0-100.0) Mean Corpuscular Hemoglobin 26.4 pg (28.0-32.0) Mean Corpuscular Hemoglobin Concent 32.2 g/dL (32.0-36.0) Red Cell Distribution Width 15.4 % (11.8-14.3) Platelet Count 288 10^3/uL (140-450) Mean Platelet Volume 7.9 fL (6.9-10.8) Neutrophils (%) (Auto) 66.4 % (37.0-80.0) Lymphocytes (%) (Auto) 23.2 % (10.0-50.0) Monocytes (%) (Auto) 6.4 % (0.0-12.0) Eosinophils (%) (Auto) 3.0 % (0.0-7.0) Basophils (%) (Auto) 1.0 % (0.0-2.0) Neutrophils # (Auto) 5.7 10 ^3/uL (1.6-8.6) Lymphocytes # (Auto) 2.0 10 ^3/uL (0.4-5.4) Monocytes # (Auto) 0.5 10 ^3/uL (0-1.3) Eosinophils # (Auto) 0.3 10 ^3/uL (0-0.8) Basophils # (Auto) 0.1 10 ^3/uL (0-0.2) Nucleated Red Blood Cells 0.1 % Erythrocyte Sedimentation Rate 7 mm/hr (0-20) Sodium Level 138 mmol/L (136-145) Potassium Level 4.3 mmol/L (3.5-5.1) Chloride Level 107 mmol/L (98-107) Carbon Dioxide Level 25 mmol/L (20-31) Anion Gap 6 (5-15) Blood Urea Nitrogen 7 mg/dL (9-23) Creatinine 0.69 mg/dL (0.550-1.02) Glomerular Filtration Rate Calc 111 mL/min (>90) BUN/Creatinine Ratio 10.1 (10.0-20.0) Serum Glucose 99 mg/dL (74-106) Calcium Level 8.3 mg/dL (8.7-10.4) Total Bilirubin 0.5 mg/dL (0.2-1.0) Aspartate Amino Transferase (AST) 15 U/L (13-40) Alanine Aminotransferase (ALT) 22 U/L (7-40) Alkaline Phosphatase 93 U/L (46-116) C-Reactive Protein High Sensitivity 0.11 mg/dL (<1.0) Total Protein 6.3 g/dL (5.7-8.2) Albumin 3.9 g/dL (3.2-4.8) Beta HCG, Quantitative 0.3 mIU/mL (1.5-4.2) B-Type Natriuretic Peptide 18.77 pg/mL (0-100) Other Laboratory Tests 06/29/24 07:23 Brief Hx & Hospital Course: Final diagnoses: Possible temporomandibular joint dysfunction Headache, unspecified Giant cell arteritis was ruled out Uncontrolled hypertension Obesity Tobacco dependence Cannabinoids positive Amphetamine use 44-year-old female was admitted for headache and pain in her mandibular area. Her CRP and ESR were normal Maxillofacial CT and MRI were normal Neurology evaluation was normal She was seen by our neurologist and recommended a tele psychiatry consult Tele psychiatric consult was done for the anxiety, they recommended Zoloft The patient otherwise is stable She said her headache is better now She can be discharged home on Zoloft 50 mg daily Continue lisinopril for the hypertension Continue other home medications She was counseled about drug use Follow up with her PCP as soon as possible Condition at Discharge: Stable Final Diagnosis/Problems List Possible temporomandibular joint dysfunction Headache giant cell arteritis was ruled out Uncontrolled hypertension Obesity Tobacco dependence Cannabinoids positive Amphetamine use Discharge Disposition: Home SNF Discharge Will this Physician continue t: No Discharge Instruct/Medications Diet: Cardiac 2g Na,low cholest Activity: No Restrictions, As Tolerated Follow Up/Referral: PCP as soon as possible Medications: Resume same home medications Discharge Statement: "Patient was advised to return to the ER or call 911 if any headaches, dizziness, shortness of breath, chest pain, abdominal pain, bleeding, fevers, or worsening of medical condition. Patient was counseled about treatment plan, medications, possible side effects, patientverbalized understanding. All questions were answered to the best of my ability. This discharge took greater then 30 minutes in planning, reviewing documentation, counseling the patient, and discussing with other team members." ASSESSMENT ASSESSMENT Assessment Possible temporomandibular joint dysfunction Headache giant cell arteritis was ruled out Uncontrolled hypertension Obesity Tobacco dependence Cannabinoids positive Amphetamine use Date of Service: Jul 01, 2024 Billing Provider: JOSE LUIS PAZ MD Common Visit Codes: 01129-[id number]/OBS DISCH DAY >30min JOSE LUIS PAZ MD Jul 01, 2024 10:29
[2024-07-01 11:04] VITALS: BP 156/76; PULSE 75; RESP 18; TEMP 97.8; O2SAT 95
== END 2024-07-01 11:30 | disposition home or self-care (01) | DRG 115 ==
LOC: ER 02:06 → OVERFLOW 05:09 → WEST WING 18:05
PROVIDERS: ADMIT Internal Medicine; ATTEND Internal Medicine Geriatric Medicine
DX: M26.602 Left temporomandibular joint disorder, unspecified (principal); D53.9 Nutritional anemia, unspecified; F10.10 Alcohol abuse, uncomplicated; E66.9 Obesity, unspecified; F12.20 Cannabis dependence, uncomplicated; F15.10 Other stimulant abuse, uncomplicated; F17.210 Nicotine dependence, cigarettes, uncomplicated; F41.9 Anxiety disorder, unspecified; I10 Essential (primary) hypertension; I25.10 Atherosclerotic heart disease of native coronary artery without angina pectoris; M19.09 Primary osteoarthritis, other specified site; I25.2 Old myocardial infarction; Z86.73 Personal history of transient ischemic attack (TIA), and cerebral infarction without residual deficits; Z82.49 Family history of ischemic heart disease and other diseases of the circulatory system; Z81.8 Family history of other mental and behavioral disorders; Z80.1 Family history of malignant neoplasm of trachea, bronchus and lung; Z79.899 Other long term (current) drug therapy; Z79.51 Long term (current) use of inhaled steroids; Z68.36 Body mass index [BMI] 36.0-36.9, adult; I16.0 Hypertensive urgency
CPT/HCPCS: 36415; 70486; 70540; 80048; 80053; 80307; 81001; 81025; 83880; 84702; 85025; 85652; 86141; 96374; 96375; G0378; J1885; J2405

== ENCOUNTER 2024-12-28 00:02 | Inpatient (IN) | payer MEDICAID ==
[~2024-12-28] VITALS: Ht 157.5 cm; Wt 99.8 kg
[~2024-12-28 00:02] MED LIST changes: -AUG875T PO; -AZIT500T66 PO; -HYDR2TAB58 PO; +LISI10TA34 PO; -PRED20TA2 PO; -PSEU120T2 PO; +SERT50TA PO
[2024-12-28] MEDS: ACETAMINOPHEN IV 1000 MG/100ML (10MG/ML) IV ONE (01:00)
[2024-12-28] MEDS: LABETALOL HCL 20 MG/4 ML VL IV ONE (01:00)
[2024-12-28 02:00] LABS: Basophils # (auto) 0.1 10 ^3/uL (0-0.2); Eosinophils # (auto) 0.3 10 ^3/uL (0-0.8); Hemoglobin 11.6 g/dL (12.2-16.2); Lymphocytes % (auto) 23.9 % (10.0-50.0); Nucleated Red Blood Cells % 0.1 %
[2024-12-28] MEDS: diazePAM 5 MG TAB PO ONE (02:02)
[2024-12-28 02:05] LABS: Basophils % (auto) 0.6 % (0.0-2.0); Eosinophils % (auto) 3.1 % (0.0-7.0); Hematocrit 35.5 % (36.0-46.0); Lymphocytes # (auto) 2.4 10 ^3/uL (0.4-5.4); Mean Corpuscular Hemoglobin 27.1 pg (28.0-32.0); Mean Corpuscular Hgb Conc. 32.7 g/dL (32.0-36.0); Mean Corpuscular Volume 82.9 fL (80.0-100.0); Monocytes # (auto) 0.6 10 ^3/uL (0-1.3); Monocytes % (auto) 6.5 % (0.0-12.0); Neutrophils # (auto) 6.5 10 ^3/uL (1.6-8.6); Neutrophils % (auto) 65.9 % (37.0-80.0); Platelet Count (auto) 292 10^3/uL (140-450); Red Blood Cells 4.29 10^6/uL (4.0-5.20); Red Cell Distribution Width 15.9 % (11.8-14.3); White Blood Cell 9.9 10^3/uL (4.4-10.8)
[2024-12-28 02:13] VITALS: PULSE 79; RESP 16; O2SAT 98
[2024-12-28 02:13] LABS: INR 0.94 (0.9-1.15)
[2024-12-28 02:14] LABS: Alkaline Phosphatase 96 U/L (46-116); Anion Gap 6 (5-15); Aspartate Aminotransferase 39 U/L (13-40); BUN/Creatinine Ratio 8.5 (10.0-20.0); Bilirubin, Total 0.4 mg/dL (0.2-1.0); Calcium 8.9 mg/dL (8.7-10.4); Carbon Dioxide 30 mmol/L (20-31); Chloride 106 mmol/L (98-107); Glucose 97 mg/dL (74-106); Potassium 3.7 mmol/L (3.5-5.1); Sodium 142 mmol/L (136-145); Total Protein 6.4 g/dL (5.7-8.2)
[2024-12-28 02:18] LABS: Alanine Aminotransferase 47 U/L (7-40); Blood Alcohol < 3.0 mg/dL (<10); Blood Urea Nitrogen 7 mg/dL (9-23)
--- NOTE | 2024-12-28 02:20 | ED.PDOC ---
HPI (NEURO) HPI Comments 44-year-old female presents with a chief complaint of headache x 5 days with associated jaw pain, nausea, dizziness, and blurred vision. Patient states that she has a history of stroke in the past. Patient is endorsing symptoms and states that they have been worsening over the past 5 days. Patient also has HTN, but denies taking any medications for it. Chief Complaint: Headache Time Seen by MD: 02:18 Primary Care Provider: Adelia Erwin Notes: Medications, Allergies Information Source: Patient Mode of Arrival: Ambulatory Severity: Moderate Headache Severity: Moderate Timing: Days Duration: Since onset Prehospital treatment: Cloth Layer Headache Quality: Throbbing Headache Location: Generalized Onset: At rest Circumstances: Spontaneous Vital Signs Vital Signs Date Time Temp Pulse Resp B/P (MAP) Pulse Ox O2 Delivery O2 Flow Rate FiO2 12/28/24 05:10 66 12/28/24 02:34 143/97 12/28/24 02:13 16 98 Room Air* 0 21 12/28/24 02:06 98.2 98.2 Physical Exam General: Awake, alert and oriented. Patient appears to be in severe discomfort Skin: Skin in warm, dry and intact. Appropriate color for ethnicity. HEENT: The head is normocephalic and atraumatic. Conjunctivae are clear without exudates or hemorrhage. Sclera is non-icteric. EOM are intact. No signs of nystagmus. Eyelids are normal in appearance without swelling or lesions. Oral mucosa is pink and moist Neck: The neck is supple with normal range of motion. No JVD. Cardiac: Heart rate and rhythm are normal. No murmurs, gallops, or rubs are auscultated. Respiratory: No signs of respiratory distress. Lung sounds are clear in all lobes bilaterally without rales, rhonchi, or wheezes. Abdominal: Abdomen is soft, non-tender without distention. Bowel sounds are present and normoactive in all four quadrants. Extremities: Upper and lower extremities are atraumatic in appearance without deformity or edema. Neurological: The patient is awake, alert and oriented to person, place, and time with normal speech. Speech is clear. There is no facial asymmetry. Psychiatric: Tearful affect Review of Systems: REVIEW OF SYSTEMS: No fever, no chills, or fatigue HEENT: No sore throat, no earache, no congestion, positive neck pain, positive jaw pain, positive blurred vision. Cardiac: No chest pain. No palpitations. Lungs: No shortness of breath, no cough. GI: Positive nausea, no vomiting, no diarrhea, no constipation, no abdominal pain : No dysuria, frequency, or urgency. No hematuria. Musculoskeletal: No joint pain , no joint swelling, no extremity edema. Skin: No rash, no itching. 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 Was a procedure done?: No X-Ray, Labs, Meds, VS Vital Signs Date Time Temp Pulse Resp B/P (MAP) Pulse Ox O2 Delivery O2 Flow Rate FiO2 12/28/24 05:10 66 12/28/24 05:04 66 12/28/24 02:34 67 143/97 12/28/24 02:13 79 16 98 Room Air* 0 21 12/28/24 02:06 98.2 79 16 174/101 (125) 98 98.2 12/28/24 01:00 79 174/101 12/28/24 00:51 97.4 94 16 200/124 (149) 100 97.4 Lab Test 12/28/24 05:39 12/28/24 04:25 12/28/24 02:28 12/28/24 01:20 Range/Units Troponin I High Sensitivity 36 *H 38 *H 36 *H 42 *H </=34 ng/L White Blood Count 9.9 4.4-10.8 10^3/uL Red Blood Count 4.29 4.0-5.20 10^6/uL Hemoglobin 11.6 L 12.2-16.2 g/dL Hematocrit 35.5 L 36.0-46.0 % Mean Corpuscular Volume 82.9 80.0-100.0 fL Mean Corpuscular Hemoglobin 27.1 L 28.0-32.0 pg Mean Corpuscular Hemoglobin Concent 32.7 32.0-36.0 g/dL Red Cell Distribution Width 15.9 H 11.8-14.3 % Platelet Count 292 140-450 10^3/uL Mean Platelet Volume 7.4 6.9-10.8 fL Neutrophils (%) (Auto) 65.9 37.0-80.0 % Lymphocytes (%) (Auto) 23.9 10.0-50.0 % Monocytes (%) (Auto) 6.5 0.0-12.0 % Eosinophils (%) (Auto) 3.1 0.0-7.0 % Basophils (%) (Auto) 0.6 0.0-2.0 % Neutrophils # (Auto) 6.5 1.6-8.6 10 ^3/uL Lymphocytes # (Auto) 2.4 0.4-5.4 10 ^3/uL Monocytes # (Auto) 0.6 0-1.3 10 ^3/uL Eosinophils # (Auto) 0.3 0-0.8 10 ^3/uL Basophils # (Auto) 0.1 0-0.2 10 ^3/uL Nucleated Red Blood Cells 0.1 % Prothrombin Time 10.0 9.3-11.8 sec Prothrombin Time INR 0.94 0.9-1.15 Sodium Level 142 136-145 mmol/L Potassium Level 3.7 3.5-5.1 mmol/L Chloride Level 106 98-107 mmol/L Carbon Dioxide Level 30 20-31 mmol/L Anion Gap 6 5-15 Blood Urea Nitrogen 7 L 9-23 mg/dL Creatinine 0.82 0.550-1.02 mg/dL Glomerular Filtration Rate Calc 92 >90 mL/min BUN/Creatinine Ratio 8.5 L 10.0-20.0 Serum Glucose 97 74-106 mg/dL Calcium Level 8.9 8.7-10.4 mg/dL Total Bilirubin 0.4 0.2-1.0 mg/dL Aspartate Amino Transferase (AST) 39 13-40 U/L Alanine Aminotransferase (ALT) 47 H 7-40 U/L Alkaline Phosphatase 96 46-116 U/L B-Type Natriuretic Peptide 14.85 0-100 pg/mL Total Protein 6.4 5.7-8.2 g/dL Albumin 4.0 3.2-4.8 g/dL Thyroid Stimulating Hormone (TSH) 1.97 0.55-4.78 uIU/mL Plasma/Serum Blood Alcohol < 3.0 <10 mg/dL Current Medications Medications (Trade) Dose Ordered Sig/Jorge Route Start Time Stop Time Status Last Admin Acetaminophen (Ofirmev) 1,000 mg ONCE ONCE IV 12/28/24 01:00 12/28/24 01:01 DC 12/28/24 01:00 Labetalol HCl (Labetalol HCl) 20 mg ONCE ONCE IV 12/28/24 01:00 12/28/24 01:01 DC 12/28/24 01:00 Diazepam (Valium Tablet) 5 mg ONCE ONCE PO 12/28/24 01:00 12/28/24 01:01 DC 12/28/24 02:02 PATIENT: RITA COX MACCT: [id number]: [id number] : 1980 LOC: ER ROOM / BED: / AGE / SEX: 44 / F ADM STATUS: REG ER SERVICE [id number] ORDERING PHYSICIAN: BLANE COVINGTON MD PROCEDURE(s): CXR1 - CHEST XRAY 1 VIEW REASON: Hypertension ORDER NUMBER(s): [id number], ACCESSION NUMBER(s): [id number] CHEST RADIOGRAPH Indication: Hypertension Technique: Single frontal view of the chest was obtained COMPARISON: XY CHEST PORTABLE on DOS: 01/24/24, XY CHEST PORTABLE on DOS: 01/21/24 FINDINGS: Lines and Tubes: None Lungs: Clear Pleura: No effusion. No pneumothorax. Cardiomediastinal contours: Cardiomegaly. Bones: Unremarkable IMPRESSION: 1. No acute disease. 2. Cardiomegaly. ATED BY: JOAQUIN BEVERLY MD DICTATED DATE/TIME: 12/28/24312 SIGNED BY: JOAQUIN BEVERLY MD SIGNED DATE/TIME: 12/28/24312 CC: PATIENT: RITA COX ACCT: [id number]: [id number] : 1980 LOC: ER ROOM / BED: / AGE / SEX: 44 / F ADM STATUS: REG ER SERVICE [id number] ORDERING PHYSICIAN: BLANE COVINGTON MD PROCEDURE(s): HWOCT - HEAD WITHOUT CONTRAST REASON: Severe headache ORDER NUMBER(s): [id number], ACCESSION NUMBER(s): [id number] EXAM: CT HEAD WITHOUT CONTRAST INDICATION: Severe headache TECHNIQUE: CT of the head without intravenous contrast. Radiation Dose : 1. Head: CT Dose: CTDI volume is 64.99 mGy. Dose-length product is 1041.63 mGy*cm The dose indicators for CT are the volume Computed Tomography (CT) Dose Index (CTDIvol) and the Dose Length Product (DLP), and are measured in units of mGy and mGy-cm, respectively. These indicators are not patient dose, but values generated from the CT scanner acquisition factors. The report includes radiation exposure data for exposures received during this examination. COMPARISON: None FINDINGS: There is no evidence of acute intracranial hemorrhage, extra-axial collection, mass effect, midline shift, herniation or hydrocephalus. The ventricles, sulci and cisterns are age appropriate. The guadalupe-white differentiation is intact. Posterior left ethmoid mucosal sinus disease. The remaining visualized paranasal sinuses and mastoid air cells are clear. The surrounding soft tissues and osseous structures are unremarkable. IMPRESSION: 1. No acute intracranial abnormality. Radiation optimization: All CT scans at this facility use at least one of these dose optimization techniques: automated exposure control mA and/or kV adjustment per patient size (includes targeted exams where dose is matched to clinical indication) or iterative reconstruction. ATED BY: JOAQUIN BEVERLY MD DICTATED DATE/TIME: 12/28/24315 SIGNED BY: JOAQUIN BEVERLY MD SIGNED DATE/TIME: 12/28/24315 CC: Time of 1ST Reevaluation: 02:48 Reevaluation 1ST: Unchanged Patient Education/Counseling: Need For Follow Up Family Education/Counseling: No Family Present Departure 1 Departure Time of Disposition: 02:40 Impression: Primary Impression: Headache Additional Impressions: Hypertensive emergency Elevated troponin Disposition: ADMITTED INPATIENT Condition: Stable Comments 44-year-old female presented to the emergency department with severe headache, initial blood pressure 200/124. Blood pressure improved with treatment in emergency department. CT head negative for acute process. High sensitivity troponin mildly elevated. Patient admitted to hospitalist service for further treatment, evaluation and monitoring. Extensive evaluation was performed in attempt to identify or rule out: (See differential diagnosis section) The following tests were ordered, and results were reviewed by me and discussed with patient: (See diagnostic results section) The following test were independently interpreted by me: EKG, chest x-ray I reviewed and agreed with the following test results read by other providers: CT head I reviewed the following notes from the pt's past medical encounters: N/A Additional information was gathered from interviewing the following independent historians: N/A Discussion of management or test interpretation with external physician/other qualified health palliative care physician: N/A Addressed an acute or chronic illness that poses a threat to life or bodily function: Hypertensive urgency, elevated troponin Decision regarding hospitalization or escalation of hospital level of care: Risk and benefits of admission for further treatment of patient's condition was considered. Due to patient's current clinical condition, high risk of decline and poor outcome if discharged and need for further inpatient management and monitoring, patient will be admitted to the hospital. Drug therapy requiring intensive monitoring for toxicity: IV labetalol Parenteral controlled substances: N/A Decision regarding elective major surgery with identified patient or procedure risk factors: N/A Decision regarding emergency major surgery: N/A Decision not to resuscitate or to de-escalate care because of poor prognosis: N/A Diagnosis or treatment significantly limited by social determinants of health: N/A Critical Care Note Critical Care Time?: Yes (35 min-critical care time only) Critical care comment: Due to a high probability of clinically significant, life threatening deterioration, the patient required my highest level of preparedness to intervene emergently and I personally spent this critical care time directly and personally managing the patient. This critical care time included obtaining a history; examining the patient; pulse oximetry; ordering and review of studies; arranging urgent treatment with development of a management plan; evaluation of patient's response to treatment; frequent reassessment; and, discussions with other providers. This critical care time was performed to assess and manage the high probability of imminent, life-threatening deterioration that could result in multi-organ failure. It was exclusive of separately billable procedures and treating other patients and teaching time. Please see my other sections and the rest of the note for further information on patient assessment and treatment. Stability Stability form required: No Heart Score Heart Score: Heart Score Response (Comments) Value History N/A 0 EKG N/A 0 Age N/A 0 Risk Factors N/A 0 Troponin N/A 0 Total 0 I personally scribed for BLANE COVINGTON MD ([email or web address]) on 12/28/24 at 02:20. Electronically submitted by Alex Hill ([email or web address]). I personally scribed for BLANE COVINGTON MD ([email or web address]) on 12/28/24 at 05:10. Electronically submitted by Alex Hill ([email or web address]). BLANE COVINGTON MD December 28, 2024 02:20
--- NOTE | 2024-12-28 03:15 | DVH ---
CHEST RADIOGRAPH Indication: Hypertension Technique: Single frontal view of the chest was obtained COMPARISON: XY CHEST PORTABLE on DOS: 01/24/24, XY CHEST PORTABLE on DOS: 01/21/24 FINDINGS: Lines and Tubes: None Lungs: Clear Pleura: No effusion. No pneumothorax. Cardiomediastinal contours: Cardiomegaly. Bones: Unremarkable IMPRESSION: 1. No acute disease. 2. Cardiomegaly.
--- NOTE | 2024-12-28 03:18 | DVH ---
EXAM: CT HEAD WITHOUT CONTRAST INDICATION: Severe headache TECHNIQUE: CT of the head without intravenous contrast. Radiation Dose : 1. Head: CT Dose: CTDI volume is 64.99 mGy. Dose-length product is 1041.63 mGy*cm The dose indicators for CT are the volume Computed Tomography (CT) Dose Index (CTDIvol) and the Dose Length Product (DLP), and are measured in units of mGy and mGy-cm, respectively. These indicators are not patient dose, but values generated from the CT scanner acquisition factors. The report includes radiation exposure data for exposures received during this examination. COMPARISON: None FINDINGS: There is no evidence of acute intracranial hemorrhage, extra-axial collection, mass effect, midline s hift, herniation or hydrocephalus. The ventricles, sulci and cisterns are age appropriate. The guadalupe-white differentiation is intact. Posterior left ethmoid mucosal sinus disease. The remaining visualized paranasal sinuses and mastoid air cells are clear. The surrounding soft tissues and osseous structures are unremarkable. IMPRESSION: 1. No acute intracranial abnormality. Radiation optimization: All CT scans at this facility use at least one of these dose optimization med hniques: automated exposure control mA and/or kV adjustment per patient size (includes targeted exam s where dose is matched to clinical indication) or iterative reconstruction.
--- NOTE | 2024-12-28 06:13 | ECG ---
[facility] Test Date: 2024-12-28 Test Time: 05:04:30 Pat Name: RITA COX Department: ED Room: [address] [place] [address] Gender: F Gunner Mate: CATE : 1980 Requested By: BLANE COVINGTON Order Number: [id number] Reading MD: José Miguel Lucas Measurements Intervals [place] Rate: 66 P: 20 AL: 170 QRS: 100 QRSD: 95 T: 32 QT: 436 QTc: 457 Interpretive Statements Sinus rhythm Anteroseptal infarct, age indeterminate Electronically Signed On 12-30-2024 21:18:17 PDT by José Miguel Lucas Please click the below link to view image of tracing.
[2024-12-28] MEDS ORDERED: HYDR25TA5 PO (07:04)
[2024-12-28] MEDS ORDERED: HYDR50TA32 PO (07:04)
[2024-12-28] MEDS ORDERED: ATOR10TA PO (07:04)
[2024-12-28] MEDS: KETOROLAC TROMETH 30 MG/ML 1ML VIAL IV ONE (07:12)
[2024-12-28] MEDS ORDERED: MORPHINE SULFATE INJ 2 MG/ml SYRG IV PRN (07:15)
[2024-12-28] MEDS ORDERED: ONDANSETRON HCL 4 MG/2 ML VIAL IV PRN (07:15)
[2024-12-28] MEDS: SODIUM CHLORIDE 0.9% 1,000 ML IV ONE (07:15)
[2024-12-28] MEDS ORDERED: NITROGLYCERIN 0.4 MG SL TAB SL PRN (07:15)
[2024-12-28] MEDS ORDERED: ACETAMINOPHEN 325 MG TAB PO PRN (07:15)
[2024-12-28] MEDS ORDERED: DOCUSATE SOD 100 MG CAP PO PRN (07:15)
[2024-12-28] MEDS ORDERED: hydrOXYzine 25 MG TAB or CAP PO PRN (07:30)
--- NOTE | 2024-12-28 07:44 | DVHHP2 ---
History of Present Illness Reason for Visit: Headache History of Present Illness Armida Valdivia is a 44-year-old female with past medical history of hypertension, [place], anxiety, hyperlipidemia, and TIA, who came in due to a headache. Patient states she has had a headache for about 5 days. It is mostly in the temporal region and she came into the hospital due to it worsening. She states the pain is a 10/10. On arrival her BP was noted to be elevated. She was given medications for her elevated BP and her headache. Patient states she has been compliant with her home medications. On assessment BP is improving, patient continues to complain of severe headache. Cardiovascular: HTN, hyperipidemia Psych: Anxiety Past Surgical History: Cholecystectomy, (x 5) Smoke: <1 pack per day ALCOHOL: occassional Drugs: Marijuana Lives: with Family Domestic Violence: Neg Review of Systems Constitutional: No: Fever, Chills, Sweats, Weakness, Malaise, Other (Headache) Eyes: No: Pain, Vision change, Conjunctivae inflammation, Eyelid inflammation, Other, Redness ENT: No: Ear pain, Ear discharge, Nose pain, Nose discharge, Nose congestion, Mouth pain, Mouth swelling, Throat pain, Throat swelling, Other Respiratory: No: Cough, Dry, Shortness of breath, SOB with excertion, Wheezing, Hemoptysis, Pleuritic Pain, Sputum, Wheezing, Other Cardiovascular: No: Chest Pain, Palpitations, Orthopnea, Paroxysmal Noc. Dyspnea, Edema, Lt Headedness, Other Gastrointestinal: No: Nausea, Vomiting, Abdominal Pain, Diarrhea, Constipation, Melena, Hematochezia, Other Musculoskeletal: No: other, neck pain, shoulder pain, arm pain, back pain, hand pain, leg pain, foot pain Skin: No: Rash, Lesions, Jaundice, Bruising, Other Neurological: No: Weakness, Numbness, Incoordination, Change in speech, Confusion, Seizures, Other Allergies: Coded Allergies: NO KNOWN ALLERGIES (Unverified , 01/21/24) Medications Current Medications Medications Dose Ordered Sig/Jorge Route Start Time Stop Time Status Last Admin Dose Admin Sertraline HCl 50 mg DAILY PO 12/28/24 10:00 UNV Patient Own Medication 10 mg DAILY PO 12/28/24 10:00 UNV Exam Vital Signs Vital Signs Date Time Temp Pulse Resp B/P (MAP) Pulse Ox O2 Delivery O2 Flow Rate FiO2 5/6/25 05:10 66 12/28/24 02:34 143/97 12/28/24 02:13 16 98 Room Air* 0 21 12/28/24 02:06 98.2 98.2 General Appearance: Alert, Oriented X3, Cooperative, moderate distress HEENT: Atraumatic, PERRLA Respiratory: Clear to auscultation, Normal air movement Cardiovascular: Regular rate, Normal S1, Normal S2 Abdominal: Normal bowel sounds, Soft, No tenderness, No hepatospenomegaly, No masses Extremities: No clubbing, No cyanosis, No edema, Normal pulses, No tenderne ss/swelling Skin: No rashes, No breakdown, No significant lesion Neuro: Normal gait, Normal speech, Strength at 12/27 X4 ext Psych/Mental Status: Mental status NL, Mood NL Labs/Xrays Labs Test 12/28/24 05:39 12/28/24 01:20 Range/Units Troponin I High Sensitivity 36 *H </=34 ng/L White Blood Count 9.9 4.4-10.8 10^3/uL Red Blood Count 4.29 4.0-5.20 10^6/uL Hemoglobin 11.6 L 12.2-16.2 g/dL Hematocrit 35.5 L 36.0-46.0 % Mean Corpuscular Volume 82.9 80.0-100.0 fL Mean Corpuscular Hemoglobin 27.1 L 28.0-32.0 pg Mean Corpuscular Hemoglobin Concent 32.7 32.0-36.0 g/dL Red Cell Distribution Width 15.9 H 11.8-14.3 % Platelet Count 292 140-450 10^3/uL Mean Platelet Volume 7.4 6.9-10.8 fL Neutrophils (%) (Auto) 65.9 37.0-80.0 % Lymphocytes (%) (Auto) 23.9 10.0-50.0 % Monocytes (%) (Auto) 6.5 0.0-12.0 % Eosinophils (%) (Auto) 3.1 0.0-7.0 % Basophils (%) (Auto) 0.6 0.0-2.0 % Neutrophils # (Auto) 6.5 1.6-8.6 10 ^3/uL Lymphocytes # (Auto) 2.4 0.4-5.4 10 ^3/uL Monocytes # (Auto) 0.6 0-1.3 10 ^3/uL Eosinophils # (Auto) 0.3 0-0.8 10 ^3/uL Basophils # (Auto) 0.1 0-0.2 10 ^3/uL Nucleated Red Blood Cells 0.1 % Prothrombin Time 10.0 9.3-11.8 sec Prothrombin Time INR 0.94 0.9-1.15 Sodium Level 142 136-145 mmol/L Potassium Level 3.7 3.5-5.1 mmol/L Chloride Level 106 98-107 mmol/L Carbon Dioxide Level 30 20-31 mmol/L Anion Gap 6 5-15 Blood Urea Nitrogen 7 L 9-23 mg/dL Creatinine 0.82 0.550-1.02 mg/dL Glomerular Filtration Rate Calc 92 >90 mL/min BUN/Creatinine Ratio 8.5 L 10.0-20.0 Serum Glucose 97 74-106 mg/dL Calcium Level 8.9 8.7-10.4 mg/dL Total Bilirubin 0.4 0.2-1.0 mg/dL Aspartate Amino Transferase (AST) 39 13-40 U/L Alanine Aminotransferase (ALT) 47 H 7-40 U/L Alkaline Phosphatase 96 46-116 U/L B-Type Natriuretic Peptide 14.85 0-100 pg/mL Total Protein 6.4 5.7-8.2 g/dL Albumin 4.0 3.2-4.8 g/dL Thyroid Stimulating Hormone (TSH) 1.97 0.55-4.78 uIU/mL Plasma/Serum Blood Alcohol < 3.0 <10 mg/dL EXAM: CT HEAD WITHOUT CONTRAST INDICATION: Severe headache FINDINGS: There is no evidence of acute intracranial hemorrhage, extra-axial collection, mass effect, midline shift, herniation or hydrocephalus. The ventricles, sulci and cisterns are age appropriate. The guadalupe-white differentiation is intact. Posterior left ethmoid mucosal sinus disease. The remaining visualized paranasal sinuses and mastoid air cells are clear. The surrounding soft tissues and osseous structures are unremarkable. IMPRESSION: 1. No acute intracranial abnormality. CHEST RADIOGRAPH FINDINGS: Lines and Tubes: None Lungs: Clear Pleura: No effusion. No pneumothorax. Cardiomediastinal contours: Cardiomegaly. Bones: Unremarkable IMPRESSION: 1. No acute disease. 2. Cardiomegaly. Assessment/Plan Assessment/Plan Assessment: Hypertensive emergency, Elevated troponin, Intractable headache, Cardiomegaly, Hypertension, Hyperlipidemia, Plan: Admit to Med-Surg, IV hydration, PRN pain medications, PRN antihypertensives, Home medications reconciled, Consider cardiology consult, Plan discussed with: Patient My Orders Orders - LENNIE EID [employer]PER[employer] Procedure Category Date Status Time Sertraline Hcl PHA 12/28/24 Logged (Zoloft) 10:00 (Nf) Lisinopril PHA 12/28/24 Logged 10:00 Ketorolac Injection PHA 12/28/24 In Process (Toradol Injection) 07:15 Admit ADMIT 12/28/24 Verified 07:04 Code Status CODE 12/28/24 Verified 07:04 Hydrocodone-Acet [facility] 12/28/24 Verified 5/325mg Tab ([place] 07:15 Ondansetron Hcl PHA 12/28/24 Verified (Zofran) 07:15 Docusate Sodium PHA 12/28/24 Verified Capsule (Colace 07:15 Complete Blood Count LAB 12/29/24 Verified 04:00 Comprehensive LAB 12/29/24 Verified Metabolic Panel 04:00 Cardiac DIET 12/28/24 Verified Diet-2gna,Lofat,Lochol Breakfast Condition: Serious [facility] 12/28/24 Verified 07:04 Acetaminophen Tablet [facility] 12/28/24 Verified (Tylenol Tablet) 07:15 Nitroglycerin [facility] 12/28/24 Verified Sublingual (Ntrostat 07:15 Morphine Sulfate PHA 12/28/24 Verified Injection 07:15 Stat Ekg For Chest [facility] 12/28/24 Verified Pain 07:04 Notify Md Of Changes [facility] 12/28/24 Verified From Base 07:04 Radio Electronics Officer For [facility] 12/28/24 Verified 24 Hours 07:04 Emergency Dysrhythmia [facility] 12/28/24 Verified Protocol 07:04 Rhythm Strips Once [facility] 12/28/24 Verified Every Shift 07:04 Oxygen By Nasal RT 12/28/24 Verified Cannula 07:04 NS [facility] 12/28/24 Verified 07:15 Hydrochlorothiazide [facility] 12/28/24 Verified Tablet (Hydrochlorot 10:00 (Nf) Atorvastatin PHA 12/28/24 Verified Calcium (Lipitor) 22:00 (Nf) Hydroxyzine Hcl PHA 12/28/24 Verified (Hydroxyzine Hydroc 07:15 Date of Service: December 28, 2024 Billing Provider: LENNIE EID Common Visit Codes: [id number] INP/OBS CARE (MOD) LENNIE EID December 28, 2024 07:44
[2024-12-28] MEDS: LISINOPRIL 5 MG TAB PO SCH (10:27)
[2024-12-28] MEDS: SERTRALINE HCL 50 MG TAB PO SCH (10:29)
[2024-12-28] MEDS: hydroCHLOROthiazide 25 MG TAB PO SCH (10:30)
[2024-12-28 10:39] VITALS: PULSE 80; RESP 18; O2SAT 98
[2024-12-28 10:51] VITALS: BP 116/76; PULSE 74; RESP 16; TEMP 98.1; O2SAT 98
[2024-12-28 13:00] VITALS: BP 155/80; PULSE 76; TEMP 98.2; O2SAT 100
[2024-12-28] MEDS: HYDROcodone-ACET 5/325MG TAB PO PRN (14:37)
[2024-12-28] MEDS ORDERED: KETOROLAC TROMETH 30 MG/ML 1ML VIAL IV PRN ×2 (14:45→17:00)
[2024-12-28 14:53] VITALS: BP 116/76; PULSE 74; RESP 16; TEMP 98.1; O2SAT 98
--- NOTE | 2024-12-28 15:40 | DVH ---
EXAM: CT CERVICAL WITHOUT CONTRAST INDICATION: bilateral hand numbness/headache EXAM DATE: 12/28/2024 02:52 PM COMPARISON: None TECHNIQUE: Multiple axial CT images of the cervical spine were obtained using bone algorithm. Axial a nd coronal reformatting was done. Bone and soft tissue windows were reviewed. Radiation Dose Information: CT Dose: CTDI volume is 28.33 mGy. Dose-length product is 736.4 mGy*cm FINDINGS: 7 seb-hsc-auwggef cervical type vertebrae. Reversal of the cervical lordosis. Vertebral body heights are maintained. Anterior bridging osteophytes from C4-C5 to C6-C7. No evidence of acute traumatic fractures or spondylolisthesis. Multilevel oisp-qa-mosrneng degenerati ve changes of the cervical spine. Limited evaluation of the neural foramina given positioning. Jcpg-qj-fcduiird right-sided neural fora ministerio stenosis at C2-C3 and C3-C4 with mild right-sided neural foramina stenosis at C4-C5 and C5-C6 fr om uncovertebral hypertrophy and facet arthritis. No significant spinal canal stenosis. Prevertebral soft tissues unremarkable. The airways are patent. IMPRESSION: No evidence of acute cervical spine fracture or traumatic malalignment. Multilevel vnul-vn-joenoyoo degenerative changes of the cervical spine as detailed above. All CT scans at this medical facility are performed using dose modulation techniques as appropriate t o a performed exam including the following: Automated exposure control was utilized; adjustment of th e MA and/or KV according to patient size; and use of iterative reconstruction technique.
[2024-12-28 17:00] VITALS: BP 165/89; PULSE 74; RESP 18; TEMP 98.4; O2SAT 100
[2024-12-28] MEDS: MORPHINE SULFATE INJ 2 MG/ml SYRG IV PRN (17:38)
[2024-12-28] MEDS: ATORVASTATIN 20 MG TAB PO SCH (22:00)
[2024-12-29] VITALS (8 sets, daily range): BP systolic 113–155; BP diastolic 74–91; PULSE 71–78; RESP 16–20; TEMP 97.7–98.4; O2SAT 94–100
[2024-12-29 07:43] LABS: Basophils # (auto) 0.1 10 ^3/uL (0-0.2); Basophils % (auto) 0.7 % (0.0-2.0); Eosinophils # (auto) 0.4 10 ^3/uL (0-0.8); Eosinophils % (auto) 4.1 % (0.0-7.0); Hematocrit 35.7 % (36.0-46.0); Hemoglobin 11.6 g/dL (12.2-16.2); Lymphocytes # (auto) 2.3 10 ^3/uL (0.4-5.4); Lymphocytes % (auto) 25.5 % (10.0-50.0); Mean Corpuscular Hemoglobin 26.9 pg (28.0-32.0); Mean Corpuscular Hgb Conc. 32.4 g/dL (32.0-36.0); Mean Corpuscular Volume 83.1 fL (80.0-100.0); Monocytes # (auto) 0.6 10 ^3/uL (0-1.3); Monocytes % (auto) 6.7 % (0.0-12.0); Neutrophils # (auto) 5.6 10 ^3/uL (1.6-8.6); Nucleated Red Blood Cells % 0.1 %; Platelet Count (auto) 235 10^3/uL (140-450); Red Cell Distribution Width 15.5 % (11.8-14.3); White Blood Cell 8.8 10^3/uL (4.4-10.8)
[2024-12-29 07:58] LABS: Albumin 3.7 g/dL (3.2-4.8); Alkaline Phosphatase 81 U/L (46-116); Anion Gap 5 (5-15); Aspartate Aminotransferase 29 U/L (13-40); BUN/Creatinine Ratio 11.4 (10.0-20.0); Carbon Dioxide 28 mmol/L (20-31); Chloride 106 mmol/L (98-107); Glucose 97 mg/dL (74-106); Potassium 3.5 mmol/L (3.5-5.1); Sodium 139 mmol/L (136-145); Total Protein 6.1 g/dL (5.7-8.2)
[2024-12-29 07:59] LABS: Bilirubin, Total 0.5 mg/dL (0.2-1.0)
[2024-12-29 08:07] LABS: Alanine Aminotransferase 40 U/L (7-40); Blood Urea Nitrogen 8 mg/dL (9-23); Calcium 8.2 mg/dL (8.7-10.4)
[2024-12-29] MEDS: KETOROLAC TROMETH 30 MG/ML 1ML VIAL IV PRN (11:46)
--- NOTE | 2024-12-29 14:29 | DVH ---
MRI BRAIN WITHOUT CONTRAST CLINICAL HISTORY: HEADACHE TECHNIQUE: Multiplanar, multisequence MR images of the brain without intravenous contrast. Comparison: MRI BRAIN HEAD WO CONTRAST on DOS: 03/23/24 FINDINGS: There is no restricted diffusion. There is a stable small area of hyperintense T2/FLAIR signal in the periventricular white matter adjacent to the posterior body of the left lateral ventricle. There is no evidence of hemorrhage, mass, mass effect or midline shift. There is no hydrocephalus or extra-axi al fluid collection. The visualized intracranial vasculature demonstrates appropriate flow-voids. The sagittal midline structures appear unremarkable. The craniocervical junction is within normal limits . The calvarium demonstrates normal marrow signal. The paranasal sinuses and mastoid air cells are cl ear. IMPRESSION: 1. There is no acute intracranial process. 2. Stable small nonspecific area of hyperintense T2/FLAIR white matter signal change adjacent to the posterior body of the left lateral ventricle. HS:Y
--- NOTE | 2024-12-29 21:34 | DVHINCON2 ---
Date of service: December 29, 2024 Referring Physician Fredi Reason for Consultation Elevated troponin History of Present Illness This is a 44-year-old female with a PMH of HTN, [place], TIA presents to the ED with a complaint of a headache x 5 days with associated jaw pain, nausea, dizziness, and blurred vision. Patient is reports his symptoms worsened prompting him to come to the ED. EKG shows NSR at 66. Troponin 42 > 36 > 38 > 36. CT head CT showed no acute intracranial abnormality. Chest x-ray shows cardiomegaly. CT C spine revealed no evidence of acute cervical spine fracture or traumatic malalignment. Multilevel ovrm-lp-rqvcmcxj degenerative changes of the cervical spine. Patient was admitted to the hospital. I am asked to consult on this patient. Family History: FH: lung cancer G8 MOTHER Hypertension G8 FATHER Allergies: Coded Allergies: NO KNOWN ALLERGIES (Unverified , 01/21/24) Home Meds Active Scripts Sertraline Hcl (Zoloft) 50 Mg Tab, 1 TAB PO DAILY, #30 TAB 2 Refills Prov:JOSE LUIS PAZ MD 07/01/24 Albuterol Sulfate (Albuterol Sulfate Hfa) 108 Mcg/Act Aer, 108 MCG IN Q4HP PRN, #1 AER Prov:JOLANTA KEYS PAC 01/24/24 Reported Medications Hydroxyzine HCl (Hydroxyzine Hydrochloride) 50 Mg Tab, 1 TAB PO HSPRN PRN 12/28/24 Atorvastatin Calcium (Lipitor) 10 Mg Tab, 10 MG PO HS 12/28/24 Hctz (Hydrochlorothiazide) 25 Mg Tab, 1 TAB PO DAILY 12/28/24 Lisinopril (Lisinopril) 10 Mg Tab, 10 MG PO DAILY for 30 Days, MG 06/29/24 Discontinued Scripts Benzonatate (Benzonatate) 100 Mg Cap, 1 CAP PO TID, #20 CAP Prov:JOLANTA KEYS PAC 01/24/24 Loratadine (Claritin) 10 Mg Cap, 10 MG PO DAILY for 10 Days, #10 CAP Prov:JOLANTA KEYS PAC 01/24/24 Current Medications Current Medications Medications (Trade) Dose Ordered Sig/Jorge Route PRN Reason Start Time Stop Time Status Last Admin Atorvastatin Calcium (Lipitor) 10 mg HS PO 12/28/24 22:00 12/28/24 22:00 Ketorolac Tromethamine (Toradol Injection) 30 mg Q6HPRN PRN IV SEVERE PAIN (7-10 PAIN SCALE) 12/28/24 14:45 12/28/24 16:56 DC Ketorolac Tromethamine (Toradol Injection) 30 mg Q6HPRN PRN IV MODERATE PAIN (4-6 PAIN SCALE) 12/28/24 17:00 12/28/24 17:13 DC Morphine Sulfate 2 mg Q4HPRN PRN IV SEVERE PAIN (7-10 PAIN SCALE) 12/28/24 17:00 12/29/24 08:54 Ketorolac Tromethamine (Toradol Injection) 30 mg Q6HPRN PRN IV MODERATE PAIN (4-6 PAIN SCALE) 12/28/24 17:15 01/02/25 14:44 12/29/24 11:46 Hydralazine HCl (Apresoline Injection) 10 mg Q6HP PRN IV SBP>150 12/28/24 17:15 Review of Systems REVIEW OF SYSTEMS: No fever, no chills, or fatigue HEENT: No sore throat, no earache, no congestion, positive neck pain, positive jaw pain, positive blurred vision. Cardiac: No chest pain. No palpitations. Lungs: No shortness of breath, no cough. GI: Positive nausea, no vomiting, no diarrhea, no constipation, no abdominal pain : No dysuria, frequency, or urgency. No hematuria. Musculoskeletal: No joint pain , no joint swelling, no extremity edema. Skin: No rash, no itching. Neuro: Positive headache, positive dizziness, no weakness Vital Signs Vital Signs Date Time Temp Pulse Resp B/P (MAP) Pulse Ox O2 Delivery O2 Flow Rate FiO2 12/29/24 13:00 98.3 73 16 155/91 (112) 95 98.3 12/29/24 07:45 Room Air* 0 21 Physical Exam GENERAL: Alert and oriented x 3. No acute distress. EYES: PERRL, EOMI. Anicteric. HENT: Moist mucous membranes. LUNGS: Clear to auscultation bilaterally. CARDIOVASCULAR: Regular rate and rhythm. ABDOMEN: Soft, nontender and nondistended. EXTREMITIES: No edema. NEUROLOGIC: No focal neurological deficits. SKIN: Warm, dry. Labs/Diagnostic Data Labs Test 12/29/24 06:33 12/28/24 05:39 12/28/24 01:20 Range/Units White Blood Count 8.8 4.4-10.8 10^3/uL Red Blood Count 4.30 4.0-5.20 10^6/uL Hemoglobin 11.6 L 12.2-16.2 g/dL Hematocrit 35.7 L 36.0-46.0 % Mean Corpuscular Volume 83.1 80.0-100.0 fL Mean Corpuscular Hemoglobin 26.9 L 28.0-32.0 pg Mean Corpuscular Hemoglobin Concent 32.4 32.0-36.0 g/dL Red Cell Distribution Width 15.5 H 11.8-14.3 % Platelet Count 235 140-450 10^3/uL Mean Platelet Volume 8.3 6.9-10.8 fL Neutrophils (%) (Auto) 63.0 37.0-80.0 % Lymphocytes (%) (Auto) 25.5 10.0-50.0 % Monocytes (%) (Auto) 6.7 0.0-12.0 % Eosinophils (%) (Auto) 4.1 0.0-7.0 % Basophils (%) (Auto) 0.7 0.0-2.0 % Neutrophils # (Auto) 5.6 1.6-8.6 10 ^3/uL Lymphocytes # (Auto) 2.3 0.4-5.4 10 ^3/uL Monocytes # (Auto) 0.6 0-1.3 10 ^3/uL Eosinophils # (Auto) 0.4 0-0.8 10 ^3/uL Basophils # (Auto) 0.1 0-0.2 10 ^3/uL Nucleated Red Blood Cells 0.1 % Sodium Level 139 136-145 mmol/L Potassium Level 3.5 3.5-5.1 mmol/L Chloride Level 106 98-107 mmol/L Carbon Dioxide Level 28 20-31 mmol/L Anion Gap 5 5-15 Blood Urea Nitrogen 8 L 9-23 mg/dL Creatinine 0.70 0.550-1.02 mg/dL Glomerular Filtration Rate Calc 111 >90 mL/min BUN/Creatinine Ratio 11.4 10.0-20.0 Serum Glucose 97 74-106 mg/dL Calcium Level 8.2 L 8.7-10.4 mg/dL Total Bilirubin 0.5 0.2-1.0 mg/dL Aspartate Amino Transferase (AST) 29 13-40 U/L Alanine Aminotransferase (ALT) 40 7-40 U/L Alkaline Phosphatase 81 46-116 U/L Total Protein 6.1 5.7-8.2 g/dL Albumin 3.7 3.2-4.8 g/dL Troponin I High Sensitivity 36 *H </=34 ng/L Prothrombin Time 10.0 9.3-11.8 sec Prothrombin Time INR 0.94 0.9-1.15 B-Type Natriuretic Peptide 14.85 0-100 pg/mL Thyroid Stimulating Hormone (TSH) 1.97 0.55-4.78 uIU/mL Plasma/Serum Blood Alcohol < 3.0 <10 mg/dL Assessment Hypertensive emergency. Elevated troponin. Intractable headache. Cardiomegaly. Hypertension. Hyperlipidemia. Plan/Recommendation I agree with your ongoing assessment and care of plan. Telemetry reviewed. Lipitor. IV Hydralazine for SBP > 150. Lisinopril. Morphine for pain management. Nitro SL. Additional plan as per the hospital course. A total of 45 minutes was spent reviewing the patient record, examining the patient, making a diagnostic and therapeutic plan, discussing this plan with medical personnel, following up on diagnostic studies and following the patient for clinical stability excluding any and all procedures. At least 50% of this time was spent in direct, etve-er-axeo contact. Plan discussed with: Patient JAZMYN STEEN MD December 29, 2024 14:27
--- NOTE | 2024-12-29 22:40 | DVHPN2 ---
Subjective Patient is seen and examined at bedside. The patient complained of severe headache today. The patient already had Tylenol and Toradol. Toradol does help a little bit Reviewed: Care Plan, H&P, Labs, Medications, Previous Orders, Radiology Changes from previous H/P or p: No Changes Eyes: No Pain, No Vision change, No Conjunctivae inflammation, No Eyelid inflammation, No Other, No Redness ENT: No Ear pain, No Ear discharge, No Nose pain, No Nose discharge, No Nose congestion, No Mouth pain, No Mouth swelling, No Throat pain, No Throat swelling, No Other Cardiovascular: No Chest Pain, No Palpitations, No Orthopnea, No Paroxysmal Noc. Dyspnea, No Edema, No Lt Headedness, No Other Respiratory: No Cough, No Dry, No Shortness of breath, No SOB with excertion, No Wheezing, No Hemoptysis, No Pleuritic Pain, No Sputum, No Other Gastrointestinal: No Nausea, No Vomiting, No Abdominal Pain, No Diarrhea, No Constipation, No Melena, No Hematochezia, No Other Musculoskeletal: No other, No neck pain, No shoulder pain, No arm pain, No back pain, No hand pain, No leg pain, No foot pain Skin: No Rash, No Lesions, No Jaundice, No Bruising, No Other Objective Vitals Vital Signs Date Time Temp Pulse Resp B/P (MAP) Pulse Ox O2 Delivery O2 Flow Rate FiO2 12/29/24 21:32 75 17 151/88 12/29/24 21:00 98.1 100 98.1 12/29/24 07:45 Room Air* 0 21 Intake/Output Intake and Output 12/29/24 07:00 Intake Total 940 ml Balance 940 ml Intake Oral 940 ml # Voids 2 General Appearance: Alert, Cooperative, No acute distress HEENT: Atraumatic, PERRLA, EOMI, Mucous membr. moist/pink Lungs: Clear to auscultation, Normal air movement Cardiovascular: Regular rate, Normal S1, Normal S2, No murmurs, Gallops, Rubs Abdomen: Normal bowel sounds, Soft, No tenderness Neuro: Cranial nerves 3-12 NL Psych/Mental Status: Mental status NL Medications Current Medications Medications Dose Ordered Sig/Jorge Route Start Time Stop Time Status Last Admin Dose Admin Sertraline HCl 50 mg DAILY PO 12/28/24 10:00 12/29/24 08:53 50 MG Lisinopril 10 mg DAILY PO 12/28/24 10:00 12/29/24 08:53 10 MG Acetaminophen/ Hydrocodone Bitart 1 tab Q4HP PRN PO 12/28/24 07:15 Hold 12/28/24 14:37 1 TAB Ondansetron HCl 4 mg Q4HP PRN IV 12/28/24 07:15 Docusate Sodium 100 mg BIDPRN PRN PO 12/28/24 07:15 Acetaminophen 650 mg Q6HP PRN PO 12/28/24 07:15 Nitroglycerin 0.4 mg Q5MINP PRN SL 12/28/24 07:15 Morphine Sulfate 2 mg Q30M PRN IV 12/28/24 07:15 Hydrochlorothiazide 25 mg DAILY PO 12/28/24 10:00 12/29/24 08:52 25 MG Atorvastatin Calcium 10 mg HS PO 12/28/24 22:00 12/29/24 21:31 10 MG Hydroxyzine Pamoate 50 mg HSPRN PRN PO 12/28/24 07:30 Morphine Sulfate 2 mg Q4HPRN PRN IV 12/28/24 17:00 12/29/24 21:32 2 MG Ketorolac Tromethamine 30 mg Q6HPRN PRN IV 12/28/24 17:15 01/02/25 14:44 12/29/24 17:52 30 MG Hydralazine HCl 10 mg Q6HP PRN IV 12/28/24 17:15 Laboratory Results Laboratory Tests 12/29/24 06:33 Chemistry Test 12/29/24 06:33 Albumin 3.7 g/dL (3.2-4.8) Calcium Level 8.2 mg/dL (8.7-10.4) L Total Protein 6.1 g/dL (5.7-8.2) LFT Test 12/29/24 06:33 Alanine Aminotransferase (ALT) 40 U/L (7-40) Alkaline Phosphatase 81 U/L (46-116) Aspartate Amino Transferase (AST) 29 U/L (13-40) Total Bilirubin 0.5 mg/dL (0.2-1.0) Labs and/or images reviewed: Labs reviewed by me Assessment/Plan Assessment/Plan Hypertensive emergency, Elevated troponin, Intractable headache, Cardiomegaly, Hypertension, Hyperlipidemia, Continuing current management. Continuing with hypertensive medication. Continuing with Toradol prn for headache CT head to rule out CVA is negative. We will order MRI of the brain CT cervical spine negative for any fracture or abnormality Continuing with statin Waiting for commissioner of conciliation to see the patient This medical document was created using an electronic medical record system with [employer] direct computerized dictation system. Although this document has been carefully reviewed, there may still be some phonetic and typographical errors. These areas are purely typographical due to imperfections of the software programs, and do not reflect any compromise in the patient's medical care. Plan discussed with: Patient My Orders Orders - NO LOCK MD Procedure Category Date Status Time Brain Head Wo Contrast MRI 12/29/24 Resulted 12:58 Transfer Orders XFER 12/29/24 Transmitted 12:58 Date of Service: December 29, 2024 Billing Provider: NO LOCK MD Common Visit Codes: [id number] INP/OBS CARE(HIGH) NO LOCK MD December 29, 2024 22:40
[2024-12-30] MEDS: hydrALAZINE HCL 20 MG/ML VL IV PRN (00:28)
[2024-12-30 01:50] VITALS: BP 179/97; PULSE 78; RESP 17; TEMP 98.1; O2SAT 98
[2024-12-30 08:00] VITALS: PULSE 83
[2024-12-30 09:00] VITALS: BP 142/80; PULSE 75; RESP 18; TEMP 98.2; O2SAT 96
--- NOTE | 2024-12-30 11:30 | DVHPN2 ---
Subjective Patient is seen and examined at bedside. The patient complained of severe headache today. The patient already had Tylenol and Toradol. Toradol does help a little bit Reviewed: Care Plan, H&P, Labs, Medications, Previous Orders, Radiology Eyes: No Pain, No Vision change, No Conjunctivae inflammation, No Eyelid inflammation, No Other, No Redness ENT: No Ear pain, No Ear discharge, No Nose pain, No Nose discharge, No Nose congestion, No Mouth pain, No Mouth swelling, No Throat pain, No Throat swelling, No Other Cardiovascular: No Chest Pain, No Palpitations, No Orthopnea, No Paroxysmal Noc. Dyspnea, No Edema, No Lt Headedness, No Other Respiratory: No Cough, No Dry, No Shortness of breath, No SOB with excertion, No Wheezing, No Hemoptysis, No Pleuritic Pain, No Sputum, No Other Gastrointestinal: No Nausea, No Vomiting, No Abdominal Pain, No Diarrhea, No Constipation, No Melena, No Hematochezia, No Other Musculoskeletal: No other, No neck pain, No shoulder pain, No arm pain, No back pain, No hand pain, No leg pain, No foot pain Skin: No Rash, No Lesions, No Jaundice, No Bruising, No Other Objective Vitals Vital Signs Date Time Temp Pulse Resp B/P (MAP) Pulse Ox O2 Delivery O2 Flow Rate FiO2 12/30/24 09:12 142/80 12/30/24 09:00 98.2 75 18 96 98.2 12/30/24 08:00 Room Air* 0 21 Intake/Output Intake and Output 12/30/24 07:00 Intake Total 1440 ml Output Total 925 ml Balance 515 ml Intake Oral 1440 ml Output Urine Total 25 ml Drainage Total 550 ml Other 350 ml # Voids 3 # Bowel Movements 1 General Appearance: Alert, Cooperative, No acute distress HEENT: Atraumatic, PERRLA, EOMI, Mucous membr. moist/pink Lungs: Clear to auscultation, Normal air movement Cardiovascular: Regular rate, Normal S1, Normal S2, No murmurs, Gallops, Rubs Abdomen: Normal bowel sounds, Soft, No tenderness Neuro: Cranial nerves 3-12 NL Psych/Mental Status: Mental status NL Medications Current Medications Medications Dose Ordered Sig/Jorge Route Start Time Stop Time Status Last Admin Dose Admin Sertraline HCl 50 mg DAILY PO 12/28/24 10:00 12/30/24 09:11 50 MG Lisinopril 10 mg DAILY PO 12/28/24 10:00 12/30/24 09:12 10 MG Acetaminophen/ Hydrocodone Bitart 1 tab Q4HP PRN PO 12/28/24 07:15 Hold 12/28/24 14:37 1 TAB Ondansetron HCl 4 mg Q4HP PRN IV 12/28/24 07:15 Docusate Sodium 100 mg BIDPRN PRN PO 12/28/24 07:15 Acetaminophen 650 mg Q6HP PRN PO 12/28/24 07:15 Nitroglycerin 0.4 mg Q5MINP PRN SL 12/28/24 07:15 Morphine Sulfate 2 mg Q30M PRN IV 12/28/24 07:15 Hydrochlorothiazide 25 mg DAILY PO 12/28/24 10:00 12/30/24 09:11 25 MG Atorvastatin Calcium 10 mg HS PO 12/28/24 22:00 12/29/24 21:31 10 MG Hydroxyzine Pamoate 50 mg HSPRN PRN PO 12/28/24 07:30 Morphine Sulfate 2 mg Q4HPRN PRN IV 12/28/24 17:00 12/29/24 21:32 2 MG Ketorolac Tromethamine 30 mg Q6HPRN PRN IV 12/28/24 17:15 01/02/25 14:44 12/30/24 08:30 30 MG Hydralazine HCl 10 mg Q6HP PRN IV 12/28/24 17:15 12/30/24 00:28 10 MG Laboratory Results Laboratory Tests 12/29/24 06:33 Assessment/Plan Assessment/Plan Hypertensive emergency, Elevated troponin, Intractable headache, Cardiomegaly, Hypertension, Hyperlipidemia, Continuing current management. Continuing with hypertensive medication. Continuing with Toradol prn for headache CT head to rule out CVA is negative. We will order MRI of the brain CT cervical spine negative for any fracture or abnormality Continuing with statin Waiting for real estate consultant to see the patient This medical document was created using an electronic medical record system with [employer] direct computerized dictation system. Although this document has been carefully reviewed, there may still be some phonetic and typographical errors. These areas are purely typographical due to imperfections of the software programs, and do not reflect any compromise in the patient's medical care. My Orders Orders - NO LOCK MD Procedure Category Date Status Time Brain Head Wo Contrast MRI 12/29/24 Resulted 12:58 Transfer Orders XFER 12/29/24 Transmitted 12:58 NO LOCK MD December 30, 2024 11:30
--- NOTE | 2024-12-30 23:33 | DVHPN2 ---
Progress Note - Dictate Date Seen: December 30, 2024 Medical Necessity Reason Pt with a Central, PICC or Fol: No Subjective Patient was seen and evaluated in follow up. Patient has no new complaints at this time. Patient denies any cardiac symptoms. Patient is cardiac stable for discharge. Telemetry reviewed. vital signs Vital Sign Date Time Temp Pulse Resp B/P (MAP) Pulse Ox O2 Delivery O2 Flow Rate FiO2 12/30/24 09:12 142/80 12/30/24 09:00 98.2 75 18 96 98.2 12/30/24 08:00 Room Air* 0 21 Total Intake and Output 12/29/24 12/29/24 12/30/24 15:00 23:00 07:00 Intake Total 800 ml 640 ml Output Total 925 ml Balance -125 ml 640 ml medications Current Medications Medications Dose Ordered Sig/Jorge Route Start Time Stop Time Status Last Admin Dose Admin Sertraline HCl 50 mg DAILY PO 12/28/24 10:00 12/30/24 09:11 50 MG Lisinopril 10 mg DAILY PO 12/28/24 10:00 12/30/24 09:12 10 MG Acetaminophen/ Hydrocodone Bitart 1 tab Q4HP PRN PO 12/28/24 07:15 Hold 12/28/24 14:37 1 TAB Ondansetron HCl 4 mg Q4HP PRN IV 12/28/24 07:15 Docusate Sodium 100 mg BIDPRN PRN PO 12/28/24 07:15 Acetaminophen 650 mg Q6HP PRN PO 12/28/24 07:15 Nitroglycerin 0.4 mg Q5MINP PRN SL 12/28/24 07:15 Morphine Sulfate 2 mg Q30M PRN IV 12/28/24 07:15 Hydrochlorothiazide 25 mg DAILY PO 12/28/24 10:00 12/30/24 09:11 25 MG Atorvastatin Calcium 10 mg HS PO 12/28/24 22:00 12/29/24 21:31 10 MG Hydroxyzine Pamoate 50 mg HSPRN PRN PO 12/28/24 07:30 Morphine Sulfate 2 mg Q4HPRN PRN IV 12/28/24 17:00 12/29/24 21:32 2 MG Ketorolac Tromethamine 30 mg Q6HPRN PRN IV 12/28/24 17:15 01/02/25 14:44 12/30/24 08:30 30 MG Hydralazine HCl 10 mg Q6HP PRN IV 12/28/24 17:15 12/30/24 00:28 10 MG objective GENERAL: Alert and oriented x 3. No acute distress. EYES: PERRL, EOMI. Anicteric. HENT: Moist mucous membranes. LUNGS: Clear to auscultation bilaterally. CARDIOVASCULAR: Regular rate and rhythm. ABDOMEN: Soft, nontender and nondistended. EXTREMITIES: No edema. NEUROLOGIC: No focal neurological deficits. SKIN: Warm, dry. laboratory and microbiology Laboratory Tests 12/29/24 06:33 Test 12/29/24 06:33 Range/Units Serum Glucose 97 74-106 mg/dL Problem List Hypertensive emergency. Elevated troponin. Intractable headache. Cardiomegaly. Hypertension. Hyperlipidemia. Assessment/Plan Continued all current supportive medical care. Lipitor. IV Hydralazine for SBP > 150. Lisinopril. Morphine for pain management. Nitro SL. Additional plan as per the hospital course. Plan discussed with: Patient JAZMYN STEEN MD December 30, 2024 12:18
--- NOTE | 2025-01-01 22:49 | DVHDS2 ---
Discharge Summary Date of Admission December 28, 2024 at 07:04 Date of Discharge: December 30, 2024 Admitting Diagnosis Hypertensive emergency, Elevated troponin, Intractable headache, Cardiomegaly, Hypertension, Hyperlipidemia, Labs/Diagnostic Data: Laboratory Results Test 12/29/24 06:33 12/28/24 05:39 12/28/24 01:20 White Blood Count 8.8 10^3/uL (4.4-10.8) Red Blood Count 4.30 10^6/uL (4.0-5.20) Hemoglobin 11.6 g/dL (12.2-16.2) Hematocrit 35.7 % (36.0-46.0) Mean Corpuscular Volume 83.1 fL (80.0-100.0) Mean Corpuscular Hemoglobin 26.9 pg (28.0-32.0) Mean Corpuscular Hemoglobin Concent 32.4 g/dL (32.0-36.0) Red Cell Distribution Width 15.5 % (11.8-14.3) Platelet Count 235 10^3/uL (140-450) Mean Platelet Volume 8.3 fL (6.9-10.8) Neutrophils (%) (Auto) 63.0 % (37.0-80.0) Lymphocytes (%) (Auto) 25.5 % (10.0-50.0) Monocytes (%) (Auto) 6.7 % (0.0-12.0) Eosinophils (%) (Auto) 4.1 % (0.0-7.0) Basophils (%) (Auto) 0.7 % (0.0-2.0) Neutrophils # (Auto) 5.6 10 ^3/uL (1.6-8.6) Lymphocytes # (Auto) 2.3 10 ^3/uL (0.4-5.4) Monocytes # (Auto) 0.6 10 ^3/uL (0-1.3) Eosinophils # (Auto) 0.4 10 ^3/uL (0-0.8) Basophils # (Auto) 0.1 10 ^3/uL (0-0.2) Nucleated Red Blood Cells 0.1 % Sodium Level 139 mmol/L (136-145) Potassium Level 3.5 mmol/L (3.5-5.1) Chloride Level 106 mmol/L (98-107) Carbon Dioxide Level 28 mmol/L (20-31) Anion Gap 5 (5-15) Blood Urea Nitrogen 8 mg/dL (9-23) Creatinine 0.70 mg/dL (0.550-1.02) Glomerular Filtration Rate Calc 111 mL/min (>90) BUN/Creatinine Ratio 11.4 (10.0-20.0) Serum Glucose 97 mg/dL (74-106) Calcium Level 8.2 mg/dL (8.7-10.4) Total Bilirubin 0.5 mg/dL (0.2-1.0) Aspartate Amino Transferase (AST) 29 U/L (13-40) Alanine Aminotransferase (ALT) 40 U/L (7-40) Alkaline Phosphatase 81 U/L (46-116) Total Protein 6.1 g/dL (5.7-8.2) Albumin 3.7 g/dL (3.2-4.8) Troponin I High Sensitivity 36 ng/L (</=34) Prothrombin Time 10.0 sec (9.3-11.8) Prothrombin Time INR 0.94 (0.9-1.15) B-Type Natriuretic Peptide 14.85 pg/mL (0-100) Thyroid Stimulating Hormone (TSH) 1.97 uIU/mL (0.55-4.78) Plasma/Serum Blood Alcohol < 3.0 mg/dL (<10) Other Laboratory Tests 12/29/24 06:33 Brief Hx & Hospital Course: This is a 44 years old female with past medical history of hypertension, [place], anxiety, TIA come in because of headache. Patient said her habitus for findings mostly at the temporal region. She come into hospital because is worsening. The patient had blood pressure 179/97. The patient was admitted. The patient was given hypertensive medication and PRN hypertension patient. The patient had a CT scan head and cervical done is negative for acute process. The patient had MRI of brain done, it showed no acute CVA. The patient also complain of chest pain and she has elevation of troponin. Cardiology was consulted. 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 The patient verbally understands without full workup she might suffer for another [place] in December had severe consequence of it or even but the patient stated that she needs to leave against medical advice Physical examined Prior to leaving against medical advice show: HEENT: Normocephalic atraumatic pupils equal react to light and accommodation. Extraocular muscles intact, conjunctiva pink, oropharynx moist, no thrush, no exudate. Lymphatic: No lymphadenopathy Cardiovascular exam: S1, S2 was heard. No murmurs, rubs, gallops Lung: Clear on auscultation bilaterally, no wheeze, rale, rhonchi. GI: Abdominal soft, nondistended, nontenderness, positive bowel sounds. Extremity: No crepitus, cyanosis, edema. Pedal pulses present bilateral. Full range of motion. Skin: Normal turgor, no rash. Psych: Alert, oriented x3. Neurology: No focal deficits, cranial nerve II to XII grossly intact. This medical document was created using an electronic medical record system with [employer] direct computerized dictation system. Although this document has been carefully reviewed, there may still be some phonetic and typographical errors. These areas are purely typographical due to imperfections of the software programs, and do not reflect any compromise in the patient's medical care. Condition at Discharge: Guarded Final Diagnosis/Problems List Hypertensive emergency, Elevated troponin, Intractable headache, Cardiomegaly, Hypertension, Hyperlipidemia, Discharge Disposition: AMA Discharge Statement: "Patient was advised to return to the ER or call 911 if any headaches, dizziness, shortness of breath, chest pain, abdominal pain, bleeding, fevers, or worsening of medical condition. Patient was counseled about treatment plan, medications, possible side effects, patientverbalized understanding. All questions were answered to the best of my ability. This discharge took greater then 30 minutes in planning, reviewing documentation, counseling the patient, and discussing with other team members." ASSESSMENT ASSESSMENT Assessment Date of Service: December 30, 2024 Billing Provider: NO LOCK MD Common Visit Codes: 57558-VRI/OBS DISCH DAY >30min NO LOCK MD January 01, 2025 22:49
== END 2024-12-30 13:13 | disposition left against medical advice (07) | DRG 199 ==
LOC: ER 00:02 → OVERFLOW 07:04 → EAST 21:18 → TELE-EAST 12-29 13:03
PROVIDERS: ADMIT Internal Medicine; ATTEND Internal Medicine
DX: I16.1 Hypertensive emergency (principal); E78.5 Hyperlipidemia, unspecified; F17.210 Nicotine dependence, cigarettes, uncomplicated; Z53.29 Procedure and treatment not carried out because of patient's decision for other reasons; F41.9 Anxiety disorder, unspecified; Z86.73 Personal history of transient ischemic attack (TIA), and cerebral infarction without residual deficits; Z90.49 Acquired absence of other specified parts of digestive tract; Z98.891 History of uterine scar from previous surgery; Z82.49 Family history of ischemic heart disease and other diseases of the circulatory system; Z80.1 Family history of malignant neoplasm of trachea, bronchus and lung; Z79.899 Other long term (current) drug therapy
CPT/HCPCS: 36415; 70450; 70551; 71045; 72125; 80053; 80320; 83880; 84443; 84484; 85025; 85610; 93005; 99291; G0378; J0131; J1885